=== PATIENT | female | born 1950 | race African-American/Black ===

== ENCOUNTER 2018-06-30 12:25 | Inpatient (IN) | payer MEDICARE, OTHER ==
[2018-06-30 13:11] VITALS: BP 160/64
--- NOTE | 2018-06-30 13:29 | ED Physician Chart ---
ED Chief Complaint/HPI - Patient Information Date Seen:: 06/30/18 Time Seen:: 12:59 Chief Complaint:: psychosis History of Present Illness:: this is a 67 yo female who was sent from the long-term for evaluation and treatment. she has dementia, copd chf,left breast tumor, diabetes mellitus gerd and bilatr thrombosis with bipolar disease. Allergies:: Allergies Allergy/AdvReac Type Severity Reaction Status Date / Time amoxicillin Allergy Verified 06/30/18 12:50 codeine Allergy Verified 06/30/18 12:50 Influenza Virus Vaccines Allergy Verified 06/30/18 12:50 Penicillins [PCN] Allergy Verified 06/30/18 12:50 tramadol Allergy Verified 06/30/18 12:50 Vitals:: Vital Signs - 8 hr 06/30/18 06/30/18 12:50 13:04 Temp 97.7 F HR 68 RR 18 BP 160/64 160/64 O2 Sat % 99 Historian:: Patient, Medical Records Review:: Nurse's Note Reviewed, Old Chart Reviewed ED Review of Systems - Review of Systems General/Constitutional: No fever, No chills, No weight loss, Weakness, No diaphoresis, No edema, No loss of appetite Skin: No skin lesions, Rash, No bruising Head: Headache, No light-headedness Eyes: No loss of vision, No pain, No diplopia ENT: No earache, No nasal drainage, No sore throat, No tinnitus Neck: No neck pain, No swelling, No thyromegaly, No stiffness, No mass noted Cardio Vascular: No chest pain, No palpitations, PND, No orthopnea, edema Pulmonary: SOB, Cough, No sputum, No wheezing GI: No nausea, No vomiting, No diarrhea, No pain, No melena, No hematochezia, No constipation, No hematemesis G/U: No dysuria, No frequency, No hematuria Musculoskeletal: Bone or joint pain, No back pain, No muscle pain Endocrine: No polyuria, No polydipsia Psychiatric: Prior psych history, No depression, No anxiety, No suicidal ideation Hematopoietic: No bruising, No lymphadenopathy Allergic/Immuno: No urticaria, No angioedema Neurological: No syncope, No focal symptoms, No weakness, No paresthesia, No headache, No seizure, No dizziness, No confusion, No vertigo ED Past Medical History - Past Medical History Obtainable: Yes Past Medical History: HTN, DM, CAD, CHF, Asthma/COPD, DVT/PE, Dyslipidemia, PUD/ GERD, Arthritis, Dementia Family History: None Social History: Smoker, Alcohol, Illicit Drug Use, Care Facility Surgical History: Appendectomy, other (exploratory lap) Family Medical History - Family Member Mother History Unknown: Yes Ethnicity: Non- Living Status: Hx Family Diabetes: Yes ED Labs/Radiology/EKG Results - Lab Results Results: Laboratory Results - last 24 hr 06/30/18 06/30/18 06/30/18 12:20 12:20 12:20 WBC 6.0 RBC 4.20 Hgb 11.8 L Hct 36.2 L MCV 86.1 MCH 28.0 MCHC Differential 32.5 RDW 17.4 Plt Count 297 MPV 8.0 Neutrophils % 58.2 Lymphocytes % 29.5 Monocytes % 9.0 Eosinophils % 2.2 Basophils % 1.1 PT 11.0 INR 1.06 PTT (Actin FS) 29.4 Sodium Potassium Chloride Carbon Dioxide Anion Gap BUN Creatinine Est GFR ( Amer) Est GFR (Non-Af Amer) BUN/Creatinine Ratio Glucose Calcium Total Bilirubin AST ALT Alkaline Phosphatase Troponin I 0.01 B-Natriuretic Peptide Total Protein Albumin Globulin Albumin/Globulin Ratio Triglycerides Cholesterol LDL Cholesterol Direct HDL Cholesterol 06/30/18 06/30/18 06/30/18 12:20 13:02 13:17 WBC RBC Hgb Hct MCV MCH MCHC Differential RDW Plt Count MPV Neutrophils % Lymphocytes % Monocytes % Eosinophils % Basophils % PT INR PTT (Actin FS) Sodium 131 L Potassium 5.0 Chloride 97 L Carbon Dioxide 23.5 Anion Gap 15.5 BUN 38 H Creatinine 1.8 H Est GFR ( Amer) 36.3 Est GFR (Non-Af Amer) 30.0 BUN/Creatinine Ratio 21.1 Glucose 348 H Calcium 9.7 Total Bilirubin 0.5 AST 8 L ALT 11 Alkaline Phosphatase 71 Troponin I B-Natriuretic Peptide 34.5 Total Protein 7.0 Albumin 3.5 L Globulin 3.5 Albumin/Globulin Ratio 1.0 Triglycerides 143 Cholesterol 236 H LDL Cholesterol Direct 145 HDL Cholesterol 55 - Radiology Results Results: chest x-ray = nad - EKG Interpretations EKG Time:: 13:32 Rate & Rhythm: rate= 68, sinus [place]: right axis ED Assessment - Assessment General Assessment: psychosis ED Septic Shock - . Is Septic Shock (SBP<90, OR Lactate>4 mmol\L) present?: No - <6hrs of presentation: Vital Signs: Vital Signs - 8 hr 06/30/18 06/30/18 12:50 13:04 Temp 97.7 F HR 68 RR 18 BP 160/64 160/64 O2 Sat % 99 ED Reassessment (Disposition) - Reassessment Reassessment Condition:: Improved - Diagnosis Diagnosis:: psychosis - Patient Disposition Discharge/Transfer:: Acute Care w/in this hosp Admitting Medical Physician:: Jovon Ayon Admitting Psych Physician:: Alexandra Srinivasan Condition at Disposition:: Unchanged
[2018-06-30 13:44] LABS: % BASOPHILS 1.1 % (0.0-2.0); % EOSINOPHILS 2.2 % (0.0-5.0); % LYMPHOCYTES 29.5 % (20.0-50.0); % NEUTROPHILS 58.2 % (40.0-80.0); BASOPHILE ABSOLUTE 0.1 Th/cumm (0-0.2); EOSINOPHILE ABSOLUTE 0.1 Th/cmm (0.1-0.4); HEMATOCRIT 36.2 % (41.0-60); HEMOGLOBIN 11.8 gm/dL (12-16); LYMPHOCYTE ABSOLUTE 1.8 Th/cmm (1.5-3.0); MEAN CELL VOLUME 86.1 fl (81-100); MEAN CORPUSCULAR HGB CONC 32.5 pg (28.0-36.0); MONOCYTE ABSOLUTE 0.5 Th/cmm (0.3-1.0); NEUTROPHILE ABSOLUTE 3.5 Th/cmm (1.8-8.0); PLATELET COUNT 297 Th/cmm (150-400); RED CELL DISTRIBUTION WIDTH 17.4 % (11.5-20.0)
[2018-06-30 13:51] LABS: ALBUMIN 3.5 gm/dL (3.7-5.3); ANION GAP 15.5 (7.0-16.0); BILIRUBIN,TOTAL 0.5 mg/dL (0.3-1.0); CALCIUM SERUM 9.7 mg/dL (8.6-10.3); CARBON DIOXIDE 23.5 mEq/L (21.0-31.0); CREATININE - SERUM 1.8 mg/dL (0.6-1.2); GFR AFRICAN-AMERICAN 36.3 ml/min (>90)
[2018-06-30 13:54] LABS: CHOLESTEROL 236 mg/dL (<200); HDL -HIGH DENSITY LIPOPROTEIN 55 mg/dL (23-92); TRIGLYCERIDES 143 mg/dL (<150)
[2018-06-30 14:00] LABS: INR 1.06 (0.5-1.4)
[2018-06-30] MEDS ORDERED: Maalox 30 mL Cup PO PRN (16:09)
[2018-06-30] MEDS ORDERED: Magnesium Hydroxide (MOM) 30 mL UDC PO PRN (16:09)
[2018-06-30 16:28] LABS: CHOLESTEROL 224 mg/dL (<200); HDL -HIGH DENSITY LIPOPROTEIN 56 mg/dL (23-92); TRIGLYCERIDES 138 mg/dL (<150)
[2018-06-30] MEDS ORDERED: INSULIN LISPRO SLIDING SCALE 100 UNITS/ML UNIT SUBQ SCH (16:30)
[2018-06-30] MEDS ORDERED: Non-Formulary Item 1 EA (Atorvastatin Calcium [Lipitor] 40 MG) PO SCH (21:00)
[2018-06-30] MEDS: Insulin Glargine 100 units/ml 10ml Vial SUBQ SCH (21:17)
[2018-06-30] MEDS: INSULIN LISPRO SLIDING SCALE 100 UNITS/ML UNIT SUBQ SCH (21:24)
[2018-07-01] MEDS: INSULIN LISPRO SLIDING SCALE 100 UNITS/ML UNIT SUBQ SCH ×4 (06:35→21:01)
[2018-07-01] MEDS: Pantoprazole 40 mg EC Tab PO SCH (06:42)
[2018-07-01] MEDS ORDERED: BENAZEPRIL HCL 40 MG PO SCH (09:00)
[2018-07-01] MEDS: Apixaban 5 MG TABLET PO SCH ×2 (10:14→17:24)
[2018-07-01] MEDS: Multivitamin Tab PO SCH (10:15)
--- NOTE | 2018-07-01 10:49 | Diagnostic Imaging Report ---
CHEST X-RAY: AP view INDICATION: Cough COMPARISON: 10/31/2014 FINDINGS: Chronic interstitial lung changes are noted. There is no focal consolidation or pleural effusions The heart is normal mildly prominent. Degenerative changes of the spine are noted. Postsurgical changes of the left axillary region are noted. IMPRESSION: Chronic lung changes. No focal consolidation identified Mild cardiomegaly Postsurgical changes of the left axillary region.
--- NOTE | 2018-07-01 11:54 | History & Physical ---
ADMIT DATE: The patient was admitted for acute psychosis from Emergency Room for medical followup. HISTORY OF PRESENT ILLNESS: This is a 67-year-old female patient, came from the alf because of severe agitation and confusion. The patient is known to have history of multiple medical problems including history of COPD, history of CHF, history of diabetes mellitus, GERD, thrombosis and dementia. The patient also has bipolar disorder. The patient is a poor historian, difficult to obtain history. REVIEW OF SYSTEMS: Essentially negative except for severe agitation. PHYSICAL EXAMINATION: HEENT: Normocephalic. Pupils equal, reactive. NECK: Supple, nontender. LUNGS: Clear. CARDIOVASCULAR: S1, S2 heard. ABDOMEN: Soft. Bowel sounds are heard. CENTRAL NERVOUS SYSTEM: The patient is confused. DIAGNOSES: Acute psychosis, history of hypertension, diabetes, history of coronary artery disease, congestive heart failure, history of asthma, chronic obstructive pulmonary disease, history of deep vein thrombosis in the past, history of dyslipidemia, history of peptic ulcer disease, gastroesophageal reflux disease, history of arthritis, and history of dementia. PLAN: We will go through her medication, reconcile her medication, and I will follow medically along with psychiatrist. JOB# [id number]
--- NOTE | 2018-07-01 15:17 | Psychiatric Evaluation ---
DATE OF SERVICE: 06/30/2018 IDENTIFYING INFORMATION: The patient is a 67-year-old female. HISTORY OF PRESENT ILLNESS: The patient comes from nursing facility because of agitation and confusion. The patient herself reports that she was admitted because she has been depressed all her life. She denies any intent to harm herself or anybody. Unable to tell me where she lived. She has been getting easily agitated with a history of dementia. The patient was able to tell me the date. She believes she is in the [facility] and that she was falsely accused. She admits using marijuana and alcohol, but she reports that was sporadic. She denies any intent to harm herself or anybody. She denies any auditory or visual hallucinations. She cannot remember the name of her medication. PAST PSYCHIATRIC HISTORY: The patient reports she was treated before. She has been hospitalized her before. She has been depressed all her life. She reports she believes that people are trying to harm her, paranoid and delusional. MEDICAL HISTORY: Peptic ulcer disease, GERD, history of arthritis, dementia, hypertension, diabetes mellitus, coronary artery disease, congestive heart failure, asthma, COPD, deep vein thrombosis and history of hyperlipidemia. ALLERGIES: THE PATIENT IS ALLERGIC TO AMOXICILLIN, CODEINE, VIRUS VACCINE, LACTULOSE. The patient was started on Risperdal 1 mg at bedtime, medication by Dr. Ayon. FAMILY AND SOCIAL HISTORY: The patient reported that she has been , not sure how long. She says she has three children, one boy and two girls. She reports she has college education. She worked in sales, using THC and alcohol sporadically. She denies family psychotic disorder. She is a poor historian. The patient came from a nursing facility. MENTAL STATUS EXAMINATION: The patient is appropriately dressed, not very groomed. She was smoking. She was alert. She was able to tell me the date. She believes she is [facility] because she was falsely accused of having depression, but then she admitted that she has been depressed all her life; however, she denies that she would harm herself or anyone. She has been easily agitated, irritable. She denies visual hallucination. Cannot remember name for medication. She has been paranoid, believing people are trying to kill her. She denies any intent to harm anyone. She seems to have average intelligence. She knows the senior account director. Concentration is poor. Unable to repeat things after me, internally preoccupied. She is paranoid. She denies any visual hallucination. She denies any intent to harm herself or anyone. Long-term good for age. Recent memory is recurrent movements with her coming here. Her insight about her illness is fair. She has depression and judgment is poor with her erratic behavior, agitated behavior, paranoia. IMPRESSION: Schizoaffective disorder. MEDICAL: Psychosis, THC and alcohol abuse. MEDICAL DIAGNOSES: As per Dr. Ayon. PLAN: The patient was started back on Risperdal 1 mg at bedtime. We will do group therapy, milieu therapy, and individual therapy. ESTIMATED LENGTH OF STAY: 3-7 days. DISCHARGE CRITERIA: Decreasing agitation, paranoia, psychosis, after discharge outpatient treatment. JOB# [id number]
[2018-07-01] MEDS ORDERED: Dextrose 50% 50 mL Abboject IVP PRN (17:07)
[2018-07-01] MEDS ORDERED: GLUCAGON HCl 1 MG KIT IM PRN (17:07)
[2018-07-01] MEDS ORDERED: INSULIN LISPRO SLIDING SCALE 100 UNITS/ML UNIT SUBQ SCH (18:00)
[2018-07-01] MEDS: Insulin Glargine 100 units/ml 10ml Vial SUBQ SCH (21:00)
[2018-07-02] MEDS: Pantoprazole 40 mg EC Tab PO SCH (06:32)
[2018-07-02] MEDS: INSULIN LISPRO SLIDING SCALE 100 UNITS/ML UNIT SUBQ SCH ×4 (06:32→20:59)
[2018-07-02] MEDS: Multivitamin Tab PO SCH (08:49)
[2018-07-02] MEDS: Apixaban 5 MG TABLET PO SCH ×2 (08:52→16:26)
--- NOTE | 2018-07-02 16:32 | Internal Medicine Prog Note ---
Internal Medicine Subjective - Subjective Service Date: 07/02/18 Patient seen and examined:: with staff Patient is:: awake, verbal Patient Complaints of:: other (Hx of Dementia.) Per staff patient has:: no adverse event, no episodes of fall Internal Medicine Objective - Results Result Diagrams: 06/30/18 12:20 06/30/18 12:20 Recent Labs: Laboratory Last Values WBC 6.0 Th/cmm (4.8-10.8) 06/30/18 12:20 RBC 4.20 Mil/cmm (3.80-5.20) 06/30/18 12:20 Hgb 11.8 gm/dL (12-16) L 06/30/18 12:20 Hct 36.2 % (41.0-60) L 06/30/18 12:20 MCV 86.1 fl (81-100) 06/30/18 12:20 MCH 28.0 pg (27.0-31.0) 06/30/18 12:20 MCHC Differential 32.5 pg (28.0-36.0) 06/30/18 12:20 RDW 17.4 % (11.5-20.0) 06/30/18 12:20 Plt Count 297 Th/cmm (150-400) 06/30/18 12:20 MPV 8.0 fl 06/30/18 12:20 Neutrophils % 58.2 % (40.0-80.0) 06/30/18 12:20 Lymphocytes % 29.5 % (20.0-50.0) 06/30/18 12:20 Monocytes % 9.0 % (2.0-10.0) 06/30/18 12:20 Eosinophils % 2.2 % (0.0-5.0) 06/30/18 12:20 Basophils % 1.1 % (0.0-2.0) 06/30/18 12:20 PT 11.0 SECONDS (9.5-11.5) 06/30/18 12:20 INR 1.06 (0.5-1.4) 06/30/18 12:20 PTT (Actin FS) 29.4 SECONDS (26.0-38.0) 06/30/18 12:20 Sodium 131 mEq/L (136-145) L 06/30/18 12:20 Potassium 5.0 mEq/L (3.5-5.1) 06/30/18 12:20 Chloride 97 mEq/L (98-107) L 06/30/18 12:20 Carbon Dioxide 23.5 mEq/L (21.0-31.0) 06/30/18 12:20 Anion Gap 15.5 (7.0-16.0) 06/30/18 12:20 BUN 38 mg/dL (7-25) H 06/30/18 12:20 Creatinine 1.8 mg/dL (0.6-1.2) H 06/30/18 12:20 Est GFR ( Amer) 36.3 ml/min (>90) 06/30/18 12:20 Est GFR (Non-Af Amer) 30.0 ml/min 06/30/18 12:20 BUN/Creatinine Ratio 21.1 06/30/18 12:20 Glucose 348 mg/dL (70-105) H 06/30/18 12:20 POC Glucose 237 MG/DL (70 - 105) H 07/02/18 11:32 Calcium 9.7 mg/dL (8.6-10.3) 06/30/18 12:20 Total Bilirubin 0.5 mg/dL (0.3-1.0) 06/30/18 12:20 AST 8 U/L (13-39) L 06/30/18 12:20 ALT 11 U/L (7-52) 06/30/18 12:20 Alkaline Phosphatase 71 U/L (34-104) 06/30/18 12:20 Troponin I 0.01 ng/mL (0.01-0.05) 06/30/18 12:20 B-Natriuretic Peptide 34.5 pg/mL (5.0-100.0) 06/30/18 13:17 Total Protein 7.0 gm/dL (6.0-8.3) 06/30/18 12:20 Albumin 3.5 gm/dL (3.7-5.3) L 06/30/18 12:20 Globulin 3.5 gm/dL 06/30/18 12:20 Albumin/Globulin Ratio 1.0 (1.0-1.8) 06/30/18 12:20 Triglycerides 138 mg/dL (<150) 06/30/18 13:02 Cholesterol 224 mg/dL (<200) H 06/30/18 13:02 LDL Cholesterol Direct 143 mg/dL (75-193) 06/30/18 13:02 HDL Cholesterol 56 mg/dL (23-92) 06/30/18 13:02 - Physical Exam Vitals and I&O: Vital Signs Temp 97.6 F 07/02/18 16:17 Pulse 73 07/02/18 16:25 Resp 20 07/02/18 16:17 BP 129/51 07/02/18 16:25 Pulse Ox 99 07/02/18 16:17 Intake & Output 07/01/18 07/02/18 07/02/18 18:59 06:59 18:59 Intake Total 120 Balance 120 Intake: Oral 120 Other: # Voids 4 3 # Bowel Movements 0 Active Medications: Current Medications Acetaminophen (Tylenol) 650 mg PO Q4HR PRN PRN Reason: Mild Pain / Temp above 100 Stop: 08/29/18 16:08 Al Hydrox/Mg Hydrox/Simethicone (Maalox) 30 ml PO Q4HR PRN PRN Reason: GI DISTRESS Stop: 08/29/18 16:08 Amlodipine Besylate (Norvasc) 10 mg PO DAILY [facility] Stop: 08/30/18 08:59 Last Admin: 07/02/18 08:50 Dose: 10 mg Atorvastatin Calcium (Lipitor) 40 mg PO HS [facility] Stop: 08/29/18 20:59 Last Admin: 07/01/18 20:53 Dose: 40 mg Benazepril HCl (Lotensin) 40 mg PO DAILY [facility] Stop: 08/30/18 08:59 Last Admin: 07/02/18 08:49 Dose: 40 mg Carvedilol (Coreg) 18.75 mg PO BID [facility] Stop: 08/29/18 16:59 Last Admin: 07/02/18 16:25 Dose: 18.75 mg Dextrose (D50w) 50 ml IVP PRN PRN PRN Reason: Blood Glucose less than 70 Stop: 08/30/18 17:06 Dextrose (Glutose 40%) 18.75 gm PO PRN PRN PRN Reason: Blood Glucose less than 70 Stop: 08/30/18 17:06 Glucagon (Glucagen) 1 mg IM PRN PRN PRN Reason: Blood Glucose less than 70 Stop: 08/30/18 17:06 Insulin Glargine (Lantus Insulin) 20 units SUBQ HS [facility] Stop: 08/29/18 20:59 Last Admin: 07/01/18 21:00 Dose: 20 units Insulin Human Lispro (Humalog Insulin Sliding Scale) 0 units SUBQ ACHS [facility]; Protocol Stop: 08/30/18 17:14 Last Admin: 07/02/18 12:00 Dose: 6 units Magnesium Hydroxide (Milk Of Magnesia) 30 ml PO HS PRN PRN Reason: Constipation Montelukast Sodium (Singulair) 10 mg PO DAILY [facility] Stop: 08/30/18 08:59 Last Admin: 07/02/18 08:49 Dose: 10 mg Multivitamins/Vitamin C (Theragran) 1 tab PO DAILY [facility] Stop: 08/30/18 08:59 Last Admin: 07/02/18 08:49 Dose: 1 tab Pantoprazole Sodium (Protonix) 40 mg PO QDAC [facility] Stop: 08/30/18 07:29 Last Admin: 07/02/18 06:32 Dose: 40 mg Risperidone (Risperdal) 1 mg PO BID [facility]; Protocol Stop: 08/31/18 08:59 Last Admin: 07/02/18 16:26 Dose: 1 mg Zolpidem Tartrate (Ambien) 5 mg PO HSMR1 PRN PRN Reason: Insomnia Stop: 08/29/18 16:08 - Procedures Procedures: Procedures Procedure Code Date INDIVID PSYCHOTHERAP NEC 94.39 05/26/08 OTHER GROUP THERAPY 94.44 10/31/14 RECREATIONAL THERAPY 93.81 05/26/08 Nutritional Asmnt/Malnutr-PDOC - Dietary Evaluation Malnutrition Findings (Please click <Entered> for more info): Nutritional Asmnt/Malnutrition Start: 07/02/18 10: 36 Text: Status: Complete Freq: Protocol: Document 07/02/18 10:36 JOSR (Rec: 07/02/18 10:50 [email or web address] [email or web address]) Nutritional Asmnt/Malnutrition Patient General Information Nutritional Screening High Risk Diagnosis psychosis Pertinent Medical Hx/Surgical Hx HTN, DM, CAD, CHF, asthma/COPD , DVT/PE, dyslipidemia, PUD/ GERD, arthritis, dementia, appendectomy Subjective Information Pt seen eating lunch in dining room. Per EMR, PO intake 50- 100%. Glucose 348 at admission noted. Not able to provide diabetic education d/t pt mental status. Current Diet Order/ Nutrition Support [facility] sofr, CCHO 60gm, Na 2gm, no lactoase Pertinent Medications lipitor, lantus, humalog, theragran, protonix Pertinent Labs 06/30 Na 131, Cl 97, BUN 38, Cr 1.8, Glucose 345 07/01-6 POC 89-324 Nutritional Hx/Data Height 1.73 m Height (Calculated Centimeters) 172.7 Current Weight (lbs) 68.039 kg Weight (Calculated Kilograms) 68.0 Weight (Calculated Grams) 13219.9 [place] Body Weight 140 Body Mass Index (BMI) 22.8 Weight Status Approriate GI Symptoms GI Symptoms None Last BM 5 Difficult in: None Food Allergies lactose Skin Integrity/Comment: intact Current %PO Good (75-100%) Estimated Nutritional Goals BEE in Kcals: Using Current wt Calories/Kcals/Kg 25-30 Kcals Calculated [id number] Protein: Using Current wt Protein g/k-1.2 Protein Calculated 68-82 Fluid: ml 1700-2040ml (1ml/kcal) Nutritional Problem 1. Problem Problem altered nutrition related labs Etiology hyperglycemia, renal dysfunction Signs/Symptoms: BUN 38, Cr 1.8, Glucose 345, POC 89-324 Malnutrition Alert Is there a minimum of two criteria No selected? Query Text:Check all the applicable criteria. A minimum of two criteria are recommended for diagnosis of either severe or non-severe malnutrition. Malnutrition Related to Morbid Obesity Malnutrition related to morbid obesity No Intervention/Recommendation Comments 1. Continue with [facility] soft, CCHO 60gm, Na 2gm, no lactoase diet as ordered. MD to adjust insulin regimen for optimal glycemic control. 2. Monitor PO intake, wt, labs and skin integrity 3. F/U as high risk in 2-3 days Expected Outcomes/Goals Expected Outcomes/Goals 1. PO intake to meet at least 75% of nutritional needs. 2. Wt stability, skin to remain intact, labs to approach WNL.
[2018-07-02] MEDS: Insulin Glargine 100 units/ml 10ml Vial SUBQ SCH (20:58)
--- NOTE | 2018-07-03 02:21 | Progress Notes ---
DATE: 07/02/2018 SUBJECTIVE: Chart reviewed and the patient interviewed. Also discussed the patient's condition with the staff and reviewed records and labs. The patient is still anxious and is still confused. The patient also is still guarded, isolative and withdrawn. The patient is slightly paranoid and suspicious. On the other hand, the patient continued to comply with taking her medications and no side effects of Risperdal. ASSESSMENT: The patient is still psychotic and agitated. TREATMENT PLAN: Continue to monitor her behavior and her condition closely. Also we will increase Risperdal to 1 mg twice a day and continue to follow up closely. Also working on behavioral modification. JOB# [id number]
[2018-07-03] MEDS: INSULIN LISPRO SLIDING SCALE 100 UNITS/ML UNIT SUBQ SCH ×4 (06:32→21:39)
[2018-07-03] MEDS: Pantoprazole 40 mg EC Tab PO SCH (06:32)
[2018-07-03] MEDS: Apixaban 5 MG TABLET PO SCH ×2 (08:38→16:14)
[2018-07-03] MEDS: Multivitamin Tab PO SCH (08:39)
--- NOTE | 2018-07-03 14:44 | Internal Medicine Prog Note ---
Internal Medicine Subjective - Subjective Service Date: 07/03/18 Patient seen and examined:: with staff Patient is:: awake, verbal Patient Complaints of:: other (Hx of Dementia.) Per staff patient has:: no adverse event, no episodes of fall Internal Medicine Objective - Results Result Diagrams: 06/30/18 12:20 06/30/18 12:20 Recent Labs: Laboratory Last Values WBC 6.0 Th/cmm (4.8-10.8) 06/30/18 12:20 RBC 4.20 Mil/cmm (3.80-5.20) 06/30/18 12:20 Hgb 11.8 gm/dL (12-16) L 06/30/18 12:20 Hct 36.2 % (41.0-60) L 06/30/18 12:20 MCV 86.1 fl (81-100) 06/30/18 12:20 MCH 28.0 pg (27.0-31.0) 06/30/18 12:20 MCHC Differential 32.5 pg (28.0-36.0) 06/30/18 12:20 RDW 17.4 % (11.5-20.0) 06/30/18 12:20 Plt Count 297 Th/cmm (150-400) 06/30/18 12:20 MPV 8.0 fl 06/30/18 12:20 Neutrophils % 58.2 % (40.0-80.0) 06/30/18 12:20 Lymphocytes % 29.5 % (20.0-50.0) 06/30/18 12:20 Monocytes % 9.0 % (2.0-10.0) 06/30/18 12:20 Eosinophils % 2.2 % (0.0-5.0) 06/30/18 12:20 Basophils % 1.1 % (0.0-2.0) 06/30/18 12:20 PT 11.0 SECONDS (9.5-11.5) 06/30/18 12:20 INR 1.06 (0.5-1.4) 06/30/18 12:20 PTT (Actin FS) 29.4 SECONDS (26.0-38.0) 06/30/18 12:20 Sodium 131 mEq/L (136-145) L 06/30/18 12:20 Potassium 5.0 mEq/L (3.5-5.1) 06/30/18 12:20 Chloride 97 mEq/L (98-107) L 06/30/18 12:20 Carbon Dioxide 23.5 mEq/L (21.0-31.0) 06/30/18 12:20 Anion Gap 15.5 (7.0-16.0) 06/30/18 12:20 BUN 38 mg/dL (7-25) H 06/30/18 12:20 Creatinine 1.8 mg/dL (0.6-1.2) H 06/30/18 12:20 Est GFR ( Amer) 36.3 ml/min (>90) 06/30/18 12:20 Est GFR (Non-Af Amer) 30.0 ml/min 06/30/18 12:20 BUN/Creatinine Ratio 21.1 06/30/18 12:20 Glucose 348 mg/dL (70-105) H 06/30/18 12:20 POC Glucose 191 MG/DL (70 - 105) H 07/03/18 11:07 Calcium 9.7 mg/dL (8.6-10.3) 06/30/18 12:20 Total Bilirubin 0.5 mg/dL (0.3-1.0) 06/30/18 12:20 AST 8 U/L (13-39) L 06/30/18 12:20 ALT 11 U/L (7-52) 06/30/18 12:20 Alkaline Phosphatase 71 U/L (34-104) 06/30/18 12:20 Troponin I 0.01 ng/mL (0.01-0.05) 06/30/18 12:20 B-Natriuretic Peptide 34.5 pg/mL (5.0-100.0) 06/30/18 13:17 Total Protein 7.0 gm/dL (6.0-8.3) 06/30/18 12:20 Albumin 3.5 gm/dL (3.7-5.3) L 06/30/18 12:20 Globulin 3.5 gm/dL 06/30/18 12:20 Albumin/Globulin Ratio 1.0 (1.0-1.8) 06/30/18 12:20 Triglycerides 138 mg/dL (<150) 06/30/18 13:02 Cholesterol 224 mg/dL (<200) H 06/30/18 13:02 LDL Cholesterol Direct 143 mg/dL (75-193) 06/30/18 13:02 HDL Cholesterol 56 mg/dL (23-92) 06/30/18 13:02 - Physical Exam Vitals and I&O: Vital Signs Temp 98.6 F 07/03/18 06:26 Pulse 79 07/03/18 08:39 Resp 18 07/03/18 08:00 BP 151/75 07/03/18 08:39 Pulse Ox 94 07/03/18 06:26 Intake & Output 07/02/18 07/03/18 07/03/18 18:59 06:59 18:59 Intake Total 240 Output Total 1 Balance 239 Intake: Oral 240 Output: Urine/Stool Mix 1 Other: # Voids 3 # Bowel Movements 0 Active Medications: Current Medications Acetaminophen (Tylenol) 650 mg PO Q4HR PRN PRN Reason: Mild Pain / Temp above 100 Stop: 08/29/18 16:08 Al Hydrox/Mg Hydrox/Simethicone (Maalox) 30 ml PO Q4HR PRN PRN Reason: GI DISTRESS Stop: 08/29/18 16:08 Amlodipine Besylate (Norvasc) 10 mg PO DAILY [facility] Stop: 08/30/18 08:59 Last Admin: 07/03/18 08:38 Dose: 10 mg Atorvastatin Calcium (Lipitor) 40 mg PO HS [facility] Stop: 08/29/18 20:59 Last Admin: 07/02/18 20:57 Dose: 40 mg Benazepril HCl (Lotensin) 40 mg PO DAILY [facility] Stop: 08/30/18 08:59 Last Admin: 07/03/18 08:39 Dose: 40 mg Carvedilol (Coreg) 18.75 mg PO BID [facility] Stop: 08/29/18 16:59 Last Admin: 07/03/18 08:38 Dose: 18.75 mg Dextrose (D50w) 50 ml IVP PRN PRN PRN Reason: Blood Glucose less than 70 Stop: 08/30/18 17:06 Dextrose (Glutose 40%) 18.75 gm PO PRN PRN PRN Reason: Blood Glucose less than 70 Stop: 08/30/18 17:06 Glucagon (Glucagen) 1 mg IM PRN PRN PRN Reason: Blood Glucose less than 70 Stop: 08/30/18 17:06 Insulin Glargine (Lantus Insulin) 20 units SUBQ HS [facility] Stop: 08/29/18 20:59 Last Admin: 07/02/18 20:58 Dose: 20 units Insulin Human Lispro (Humalog Insulin Sliding Scale) 0 units SUBQ ACHS [facility]; Protocol Stop: 08/30/18 17:14 Last Admin: 07/03/18 11:31 Dose: 4 units Magnesium Hydroxide (Milk Of Magnesia) 30 ml PO HS PRN PRN Reason: Constipation Montelukast Sodium (Singulair) 10 mg PO DAILY [facility] Stop: 08/30/18 08:59 Last Admin: 07/03/18 08:39 Dose: 10 mg Multivitamins/Vitamin C (Theragran) 1 tab PO DAILY [facility] Stop: 08/30/18 08:59 Last Admin: 07/03/18 08:39 Dose: 1 tab Pantoprazole Sodium (Protonix) 40 mg PO QDAC [facility] Stop: 08/30/18 07:29 Last Admin: 07/03/18 06:32 Dose: 40 mg Risperidone (Risperdal) 1 mg PO BID [facility]; Protocol Stop: 08/31/18 08:59 Last Admin: 07/03/18 08:38 Dose: 1 mg Zolpidem Tartrate (Ambien) 5 mg PO HSMR1 PRN PRN Reason: Insomnia Stop: 08/29/18 16:08 General: alert HEENT: NC/AT, PERRLA Neck: Supple Lungs: CTAB Cardiovascular: RRR, Normal S1, Normal S2, without murmur Abdomen: soft, non-tender, non-distended, positive bowel sound Extremities: excoriation Neurological: alert - Procedures Procedures: Procedures Procedure Code Date INDIVID PSYCHOTHERAP NEC 94.39 05/26/08 OTHER GROUP THERAPY 94.44 10/31/14 RECREATIONAL THERAPY 93.81 05/26/08 Internal Medicine Assmt/Plan - Assessment Assessment: HTN DM CAD CHF COPD Dyslipidemia Arthritis Dementia - Plan Plan: FALL PRECAUTIONS ACCUCHECK CONTINUE CURRENT PLAN OF CARE Nutritional Asmnt/Malnutr-PDOC - Dietary Evaluation Malnutrition Findings (Please click <Entered> for more info): Nutritional Asmnt/Malnutrition Start: 07/02/18 10: 36 Text: Status: Complete Freq: Protocol: Document 07/02/18 10:36 [facility] (Rec: 07/02/18 10:50 [facility] [email or web address]) Nutritional Asmnt/Malnutrition Patient General Information Nutritional Screening High Risk Diagnosis psychosis Pertinent Medical Hx/Surgical Hx HTN, DM, CAD, CHF, asthma/COPD , DVT/PE, dyslipidemia, PUD/ GERD, arthritis, dementia, appendectomy Subjective Information Pt seen eating lunch in dining room. Per EMR, PO intake 50- 100%. Glucose 348 at admission noted. Not able to provide diabetic education d/t pt mental status. Current Diet Order/ Nutrition Support [facility] sofr, CCHO 60gm, Na 2gm, no lactoase Pertinent Medications lipitor, lantus, humalog, theragran, protonix Pertinent Labs 06/30 Na 131, Cl 97, BUN 38, Cr 1.8, Glucose 345 07/01-07/02 POC 89-324 Nutritional Hx/Data Height 5 ft 8 in Height (Calculated Centimeters) 172.7 Current Weight (lbs) 150 lb Weight (Calculated Kilograms) 68.0 Weight (Calculated Grams) 29561.9 [place] Body Weight 140 Body Mass Index (BMI) 22.8 Weight Status Approriate GI Symptoms GI Symptoms None Last BM 07/01 Difficult in: None Food Allergies lactose Skin Integrity/Comment: intact Current %PO Good (75-100%) Estimated Nutritional Goals BEE in Kcals: Using Current wt Calories/Kcals/Kg 25-30 Kcals Calculated 4397-1921 Protein: Using Current wt Protein g/k-1.2 Protein Calculated 68-82 Fluid: ml 1700-2040ml (1ml/kcal) Nutritional Problem 1. Problem Problem altered nutrition related labs Etiology hyperglycemia, renal dysfunction Signs/Symptoms: BUN 38, Cr 1.8, Glucose 345, POC 89-324 Malnutrition Alert Is there a minimum of two criteria No selected? Query Text:Check all the applicable criteria. A minimum of two criteria are recommended for diagnosis of either severe or non-severe malnutrition. Malnutrition Related to Morbid Obesity Malnutrition related to morbid obesity No Intervention/Recommendation Comments 1. Continue with [facility] soft, CCHO 60gm, Na 2gm, no lactoase diet as ordered. MD to adjust insulin regimen for optimal glycemic control. 2. Monitor PO intake, wt, labs and skin integrity 3. F/U as high risk in 2-3 days Expected Outcomes/Goals Expected Outcomes/Goals 1. PO intake to meet at least 75% of nutritional needs. 2. Wt stability, skin to remain intact, labs to approach WNL.
[2018-07-03] MEDS: Insulin Glargine 100 units/ml 10ml Vial SUBQ SCH (21:39)
--- NOTE | 2018-07-04 03:27 | Progress Notes ---
DATE: SUBJECTIVE: Chart was reviewed and the patient interviewed. Also discussed the patient's condition with the staff and reviewed records and labs. The patient is still withdrawn and she is still guarded. The patient also is still suspicious and is still paranoid. The patient also still needs lots of redirections. Otherwise, the patient is compliant with taking her medications with no side effects of medications. ASSESSMENT: The patient is still psychotic and is still withdrawn. TREATMENT PLAN: Continue to monitor her behavior and her condition closely. Also, continue Risperdal 1 mg twice a day and continue to work on behavioral modification. JOB# [id number]
[2018-07-04] MEDS: INSULIN LISPRO SLIDING SCALE 100 UNITS/ML UNIT SUBQ SCH ×4 (06:42→20:57)
[2018-07-04] MEDS: Pantoprazole 40 mg EC Tab PO SCH (06:50)
[2018-07-04] MEDS: Apixaban 5 MG TABLET PO SCH ×2 (08:34→17:20)
[2018-07-04] MEDS: Multivitamin Tab PO SCH (08:37)
--- NOTE | 2018-07-04 19:34 | Internal Medicine Prog Note ---
Internal Medicine Subjective - Subjective Service Date: 07/04/18 Patient seen and examined:: with staff Patient is:: awake, verbal Patient Complaints of:: other (Hx of Dementia.) Per staff patient has:: no adverse event, no episodes of fall Internal Medicine Objective - Results Result Diagrams: 06/30/18 12:20 06/30/18 12:20 Recent Labs: Laboratory Last Values WBC 6.0 Th/cmm (4.8-10.8) 06/30/18 12:20 RBC 4.20 Mil/cmm (3.80-5.20) 06/30/18 12:20 Hgb 11.8 gm/dL (12-16) L 06/30/18 12:20 Hct 36.2 % (41.0-60) L 06/30/18 12:20 MCV 86.1 fl (81-100) 06/30/18 12:20 MCH 28.0 pg (27.0-31.0) 06/30/18 12:20 MCHC Differential 32.5 pg (28.0-36.0) 06/30/18 12:20 RDW 17.4 % (11.5-20.0) 06/30/18 12:20 Plt Count 297 Th/cmm (150-400) 06/30/18 12:20 MPV 8.0 fl 06/30/18 12:20 Neutrophils % 58.2 % (40.0-80.0) 06/30/18 12:20 Lymphocytes % 29.5 % (20.0-50.0) 06/30/18 12:20 Monocytes % 9.0 % (2.0-10.0) 06/30/18 12:20 Eosinophils % 2.2 % (0.0-5.0) 06/30/18 12:20 Basophils % 1.1 % (0.0-2.0) 06/30/18 12:20 PT 11.0 SECONDS (9.5-11.5) 06/30/18 12:20 INR 1.06 (0.5-1.4) 06/30/18 12:20 PTT (Actin FS) 29.4 SECONDS (26.0-38.0) 06/30/18 12:20 Sodium 131 mEq/L (136-145) L 06/30/18 12:20 Potassium 5.0 mEq/L (3.5-5.1) 06/30/18 12:20 Chloride 97 mEq/L (98-107) L 06/30/18 12:20 Carbon Dioxide 23.5 mEq/L (21.0-31.0) 06/30/18 12:20 Anion Gap 15.5 (7.0-16.0) 06/30/18 12:20 BUN 38 mg/dL (7-25) H 06/30/18 12:20 Creatinine 1.8 mg/dL (0.6-1.2) H 06/30/18 12:20 Est GFR ( Amer) 36.3 ml/min (>90) 06/30/18 12:20 Est GFR (Non-Af Amer) 30.0 ml/min 06/30/18 12:20 BUN/Creatinine Ratio 21.1 06/30/18 12:20 Glucose 348 mg/dL (70-105) H 06/30/18 12:20 POC Glucose 271 MG/DL (70 - 105) H 07/04/18 16:54 Calcium 9.7 mg/dL (8.6-10.3) 06/30/18 12:20 Total Bilirubin 0.5 mg/dL (0.3-1.0) 06/30/18 12:20 AST 8 U/L (13-39) L 06/30/18 12:20 ALT 11 U/L (7-52) 06/30/18 12:20 Alkaline Phosphatase 71 U/L (34-104) 06/30/18 12:20 Troponin I 0.01 ng/mL (0.01-0.05) 06/30/18 12:20 B-Natriuretic Peptide 34.5 pg/mL (5.0-100.0) 06/30/18 13:17 Total Protein 7.0 gm/dL (6.0-8.3) 06/30/18 12:20 Albumin 3.5 gm/dL (3.7-5.3) L 06/30/18 12:20 Globulin 3.5 gm/dL 06/30/18 12:20 Albumin/Globulin Ratio 1.0 (1.0-1.8) 06/30/18 12:20 Triglycerides 138 mg/dL (<150) 06/30/18 13:02 Cholesterol 224 mg/dL (<200) H 06/30/18 13:02 LDL Cholesterol Direct 143 mg/dL (75-193) 06/30/18 13:02 HDL Cholesterol 56 mg/dL (23-92) 06/30/18 13:02 - Physical Exam Vitals and I&O: Vital Signs Temp 97.4 F 07/04/18 14:00 Pulse 71 07/04/18 17:20 Resp 18 07/04/18 14:00 BP 145/72 07/04/18 17:20 Pulse Ox 98 07/04/18 14:00 Intake & Output 07/04/18 07/04/18 07/05/18 06:59 18:59 06:59 Intake Total 360 1200 Balance 360 1200 Intake: Oral 360 1200 Other: # Voids 2 # Bowel Movements 0 1 Active Medications: Current Medications Acetaminophen (Tylenol) 650 mg PO Q4HR PRN PRN Reason: Mild Pain / Temp above 100 Stop: 08/29/18 16:08 Last Admin: 07/03/18 16:22 Dose: 650 mg Al Hydrox/Mg Hydrox/Simethicone (Maalox) 30 ml PO Q4HR PRN PRN Reason: GI DISTRESS Stop: 08/29/18 16:08 Amlodipine Besylate (Norvasc) 10 mg PO DAILY [facility] Stop: 08/30/18 08:59 Last Admin: 07/04/18 08:33 Dose: 10 mg Atorvastatin Calcium (Lipitor) 40 mg PO HS [facility] Stop: 08/29/18 20:59 Last Admin: 07/03/18 21:35 Dose: 40 mg Benazepril HCl (Lotensin) 40 mg PO DAILY [facility] Stop: 08/30/18 08:59 Last Admin: 07/04/18 08:34 Dose: 40 mg Carvedilol (Coreg) 18.75 mg PO BID [facility] Stop: 08/29/18 16:59 Last Admin: 07/04/18 17:20 Dose: 18.75 mg Dextrose (D50w) 50 ml IVP PRN PRN PRN Reason: Blood Glucose less than 70 Stop: 08/30/18 17:06 Dextrose (Glutose 40%) 18.75 gm PO PRN PRN PRN Reason: Blood Glucose less than 70 Stop: 08/30/18 17:06 Glucagon (Glucagen) 1 mg IM PRN PRN PRN Reason: Blood Glucose less than 70 Stop: 08/30/18 17:06 Insulin Glargine (Lantus Insulin) 20 units SUBQ HS [facility] Stop: 08/29/18 20:59 Last Admin: 07/03/18 21:39 Dose: 20 units Insulin Human Lispro (Humalog Insulin Sliding Scale) 0 units SUBQ ACHS [facility]; Protocol Stop: 08/30/18 17:14 Last Admin: 07/04/18 17:11 Dose: 10 units Magnesium Hydroxide (Milk Of Magnesia) 30 ml PO HS PRN PRN Reason: Constipation Montelukast Sodium (Singulair) 10 mg PO DAILY [facility] Stop: 08/30/18 08:59 Last Admin: 07/04/18 08:37 Dose: 10 mg Multivitamins/Vitamin C (Theragran) 1 tab PO DAILY [facility] Stop: 08/30/18 08:59 Last Admin: 07/04/18 08:37 Dose: 1 tab Pantoprazole Sodium (Protonix) 40 mg PO QDAC [facility] Stop: 08/30/18 07:29 Last Admin: 07/04/18 06:50 Dose: 40 mg Risperidone (Risperdal) 1 mg PO BID [facility]; Protocol Stop: 08/31/18 08:59 Last Admin: 07/04/18 17:21 Dose: 1 mg Zolpidem Tartrate (Ambien) 5 mg PO HSMR1 PRN PRN Reason: Insomnia Stop: 08/29/18 16:08 Physical Exam: 67 y/o female patient is still withdrawn and psychotic. General: demented HEENT: NC/AT, PERRLA Neck: Supple Lungs: CTAB Cardiovascular: RRR, Normal S1, Normal S2, without murmur Abdomen: soft, non-tender, non-distended, positive bowel sound Extremities: excoriation Neurological: no change, disorganized - Procedures Procedures: Procedures Procedure Code Date INDIVID PSYCHOTHERAP NEC 94.39 05/26/08 OTHER GROUP THERAPY 94.44 10/31/14 RECREATIONAL THERAPY 93.81 05/26/08 Internal Medicine Assmt/Plan - Assessment Assessment: Dementia. COPD. DM. CHF. CAD. HTN. Arthritis. Dyslipidemia. - Plan Plan: Continuation of care Monitor vitals, diabetic low sodium diet and labs Accu-check twice daily Fall precaution Pain management Continue present care management Nutritional Asmnt/Malnutr-PDOC - Dietary Evaluation Malnutrition Findings (Please click <Entered> for more info): Nutritional Asmnt/Malnutrition Start: 07/02/18 10: 36 Text: Status: Complete Freq: Protocol: Document 07/02/18 10:36 [facility] (Rec: 07/02/18 10:50 [email or web address] [email or web address]) Nutritional Asmnt/Malnutrition Patient General Information Nutritional Screening High Risk Diagnosis psychosis Pertinent Medical Hx/Surgical Hx HTN, DM, CAD, CHF, asthma/COPD , DVT/PE, dyslipidemia, PUD/ GERD, arthritis, dementia, appendectomy Subjective Information Pt seen eating lunch in dining room. Per EMR, PO intake 50- 100%. Glucose 348 at admission noted. Not able to provide diabetic education d/t pt mental status. Current Diet Order/ Nutrition Support [facility] sofr, CCHO 60gm, Na 2gm, no lactoase Pertinent Medications lipitor, lantus, humalog, theragran, protonix Pertinent Labs 06/30 Na 131, Cl 97, BUN 38, Cr 1.8, Glucose 345 07/01-07/02 POC 89-324 Nutritional Hx/Data Height 1.73 m Height (Calculated Centimeters) 172.7 Current Weight (lbs) 68.039 kg Weight (Calculated Kilograms) 68.0 Weight (Calculated Grams) 29939.9 [place] Body Weight 140 Body Mass Index (BMI) 22.8 Weight Status Approriate GI Symptoms GI Symptoms None Last BM 55 Difficult in: None Food Allergies lactose Skin Integrity/Comment: intact Current %PO Good (75-100%) Estimated Nutritional Goals BEE in Kcals: Using Current wt Calories/Kcals/Kg 25-30 Kcals Calculated 8991-6238 Protein: Using Current wt Protein g/k-1.2 Protein Calculated 68-82 Fluid: ml 1700-2040ml (1ml/kcal) Nutritional Problem 1. Problem Problem altered nutrition related labs Etiology hyperglycemia, renal dysfunction Signs/Symptoms: BUN 38, Cr 1.8, Glucose 345, POC 89-324 Malnutrition Alert Is there a minimum of two criteria No selected? Query Text:Check all the applicable criteria. A minimum of two criteria are recommended for diagnosis of either severe or non-severe malnutrition. Malnutrition Related to Morbid Obesity Malnutrition related to morbid obesity No Intervention/Recommendation Comments 1. Continue with [facility] soft, CCHO 60gm, Na 2gm, no lactoase diet as ordered. MD to adjust insulin regimen for optimal glycemic control. 2. Monitor PO intake, wt, labs and skin integrity 3. F/U as high risk in 2-3 days Expected Outcomes/Goals Expected Outcomes/Goals 1. PO intake to meet at least 75% of nutritional needs. 2. Wt stability, skin to remain intact, labs to approach WNL.
[2018-07-04] MEDS: Insulin Glargine 100 units/ml 10ml Vial SUBQ SCH (20:57)
[2018-07-05] MEDS: INSULIN LISPRO SLIDING SCALE 100 UNITS/ML UNIT SUBQ SCH ×4 (06:40→21:00)
[2018-07-05] MEDS: Pantoprazole 40 mg EC Tab PO SCH (06:40)
[2018-07-05] MEDS: Multivitamin Tab PO SCH (08:59)
[2018-07-05] MEDS: Apixaban 5 MG TABLET PO SCH ×2 (09:03→16:54)
--- NOTE | 2018-07-05 09:10 | Progress Notes ---
DATE: SUBJECTIVE: Chart was reviewed and the patient interviewed. Also discussed the patient's condition with the staff and reviewed records and labs. The patient is still guarded and she is still having episodes of yelling and screaming, but less than before. The patient also is still suspicious and is still paranoid. She also is still interacting minimally with others. Otherwise, the patient is more visible. She is compliant with taking her medications with no side effects of medications. ASSESSMENT: The patient is still psychotic, but showing improvement. TREATMENT PLAN: Continue to monitor behavior and condition closely. Also, continue adjusting psychotropic medications and work on her ineffective coping. [facility]# [id number]
--- NOTE | 2018-07-05 20:54 | Progress Notes ---
DATE: SUBJECTIVE: Chart reviewed and the patient interviewed. Also discussed the patient's condition with the staff and reviewed records and labs. The patient is still actively hallucinating and the patient also seems to be confused. The patient is talking about roommate that is "coming and taking things from me." She also is still suspicious, anxious, and paranoid. Otherwise, the patient is compliant with taking her medications with no side effects of medications. She is still suspicious and paranoid and guarded and needs close monitoring. ASSESSMENT: The patient is still agitated and is still psychotic. TREATMENT PLAN: Continue to monitor her behavior and her condition closely. Also, continue adjusting psychotropic medications and followup. [facility]# [id number]
[2018-07-05] MEDS: Insulin Glargine 100 units/ml 10ml Vial SUBQ SCH (20:59)
[2018-07-06] MEDS: Pantoprazole 40 mg EC Tab PO SCH (06:33)
[2018-07-06] MEDS: INSULIN LISPRO SLIDING SCALE 100 UNITS/ML UNIT SUBQ SCH ×4 (06:34→20:40)
[2018-07-06] MEDS: Multivitamin Tab PO SCH (08:53)
[2018-07-06] MEDS: Apixaban 5 MG TABLET PO SCH ×2 (08:53→16:12)
--- NOTE | 2018-07-06 14:20 | Internal Medicine Prog Note ---
Internal Medicine Subjective - Subjective Service Date: 07/06/18 Patient seen and examined:: with staff Patient is:: awake, verbal Patient Complaints of:: other (Hx of Dementia.) Per staff patient has:: no adverse event, no episodes of fall Internal Medicine Objective - Results Result Diagrams: 06/30/18 12:20 06/30/18 12:20 Recent Labs: Laboratory Last Values WBC 6.0 Th/cmm (4.8-10.8) 06/30/18 12:20 RBC 4.20 Mil/cmm (3.80-5.20) 06/30/18 12:20 Hgb 11.8 gm/dL (12-16) L 06/30/18 12:20 Hct 36.2 % (41.0-60) L 06/30/18 12:20 MCV 86.1 fl (81-100) 06/30/18 12:20 MCH 28.0 pg (27.0-31.0) 06/30/18 12:20 MCHC Differential 32.5 pg (28.0-36.0) 06/30/18 12:20 RDW 17.4 % (11.5-20.0) 06/30/18 12:20 Plt Count 297 Th/cmm (150-400) 06/30/18 12:20 MPV 8.0 fl 06/30/18 12:20 Neutrophils % 58.2 % (40.0-80.0) 06/30/18 12:20 Lymphocytes % 29.5 % (20.0-50.0) 06/30/18 12:20 Monocytes % 9.0 % (2.0-10.0) 06/30/18 12:20 Eosinophils % 2.2 % (0.0-5.0) 06/30/18 12:20 Basophils % 1.1 % (0.0-2.0) 06/30/18 12:20 PT 11.0 SECONDS (9.5-11.5) 06/30/18 12:20 INR 1.06 (0.5-1.4) 06/30/18 12:20 PTT (Actin FS) 29.4 SECONDS (26.0-38.0) 06/30/18 12:20 Sodium 131 mEq/L (136-145) L 06/30/18 12:20 Potassium 5.0 mEq/L (3.5-5.1) 06/30/18 12:20 Chloride 97 mEq/L (98-107) L 06/30/18 12:20 Carbon Dioxide 23.5 mEq/L (21.0-31.0) 06/30/18 12:20 Anion Gap 15.5 (7.0-16.0) 06/30/18 12:20 BUN 38 mg/dL (7-25) H 06/30/18 12:20 Creatinine 1.8 mg/dL (0.6-1.2) H 06/30/18 12:20 Est GFR ( Amer) 36.3 ml/min (>90) 06/30/18 12:20 Est GFR (Non-Af Amer) 30.0 ml/min 06/30/18 12:20 BUN/Creatinine Ratio 21.1 06/30/18 12:20 Glucose 348 mg/dL (70-105) H 06/30/18 12:20 POC Glucose 148 MG/DL (70 - 105) H 07/06/18 11:46 Calcium 9.7 mg/dL (8.6-10.3) 06/30/18 12:20 Total Bilirubin 0.5 mg/dL (0.3-1.0) 06/30/18 12:20 AST 8 U/L (13-39) L 06/30/18 12:20 ALT 11 U/L (7-52) 06/30/18 12:20 Alkaline Phosphatase 71 U/L (34-104) 06/30/18 12:20 Troponin I 0.01 ng/mL (0.01-0.05) 06/30/18 12:20 B-Natriuretic Peptide 34.5 pg/mL (5.0-100.0) 06/30/18 13:17 Total Protein 7.0 gm/dL (6.0-8.3) 06/30/18 12:20 Albumin 3.5 gm/dL (3.7-5.3) L 06/30/18 12:20 Globulin 3.5 gm/dL 06/30/18 12:20 Albumin/Globulin Ratio 1.0 (1.0-1.8) 06/30/18 12:20 Triglycerides 138 mg/dL (<150) 06/30/18 13:02 Cholesterol 224 mg/dL (<200) H 06/30/18 13:02 LDL Cholesterol Direct 143 mg/dL (75-193) 06/30/18 13:02 HDL Cholesterol 56 mg/dL (23-92) 06/30/18 13:02 - Physical Exam Vitals and I&O: Vital Signs Temp 97.6 F 07/06/18 06:42 Pulse 78 07/06/18 08:53 Resp 18 07/06/18 07:52 BP 126/61 07/06/18 08:53 Pulse Ox 98 07/06/18 06:42 Intake & Output 07/05/18 07/06/18 07/06/18 18:59 06:59 18:59 Intake Total 1000 120 Balance 1000 120 Intake: Oral 1000 120 Other: # Voids 4 2 # Bowel Movements 1 0 Active Medications: Current Medications Acetaminophen (Tylenol) 650 mg PO Q4HR PRN PRN Reason: Mild Pain / Temp above 100 Stop: 08/29/18 16:08 Last Admin: 07/03/18 16:22 Dose: 650 mg Al Hydrox/Mg Hydrox/Simethicone (Maalox) 30 ml PO Q4HR PRN PRN Reason: GI DISTRESS Stop: 08/29/18 16:08 Amlodipine Besylate (Norvasc) 10 mg PO DAILY [facility] Stop: 08/30/18 08:59 Last Admin: 07/06/18 08:52 Dose: 10 mg Atorvastatin Calcium (Lipitor) 40 mg PO HS [facility] Stop: 08/29/18 20:59 Last Admin: 07/05/18 20:53 Dose: 40 mg Benazepril HCl (Lotensin) 40 mg PO DAILY [facility] Stop: 08/30/18 08:59 Last Admin: 07/06/18 08:51 Dose: 40 mg Carvedilol (Coreg) 18.75 mg PO BID [facility] Stop: 08/29/18 16:59 Last Admin: 07/06/18 08:53 Dose: 18.75 mg Dextrose (D50w) 50 ml IVP PRN PRN PRN Reason: Blood Glucose less than 70 Stop: 08/30/18 17:06 Dextrose (Glutose 40%) 18.75 gm PO PRN PRN PRN Reason: Blood Glucose less than 70 Stop: 08/30/18 17:06 Glucagon (Glucagen) 1 mg IM PRN PRN PRN Reason: Blood Glucose less than 70 Stop: 08/30/18 17:06 Insulin Glargine (Lantus Insulin) 20 units SUBQ HS [facility] Stop: 08/29/18 20:59 Last Admin: 07/05/18 20:59 Dose: 20 units Insulin Human Lispro (Humalog Insulin Sliding Scale) 0 units SUBQ ACHS [facility]; Protocol Stop: 08/30/18 17:14 Last Admin: 07/06/18 11:58 Dose: 4 units Magnesium Hydroxide (Milk Of Magnesia) 30 ml PO HS PRN PRN Reason: Constipation Montelukast Sodium (Singulair) 10 mg PO DAILY [facility] Stop: 08/30/18 08:59 Last Admin: 07/06/18 08:53 Dose: 10 mg Multivitamins/Vitamin C (Theragran) 1 tab PO DAILY [facility] Stop: 08/30/18 08:59 Last Admin: 07/06/18 08:53 Dose: 1 tab Pantoprazole Sodium (Protonix) 40 mg PO QDAC [facility] Stop: 08/30/18 07:29 Last Admin: 07/06/18 06:33 Dose: 40 mg Risperidone (Risperdal) 1.5 mg PO BID [facility]; Protocol Stop: 09/04/18 08:59 Last Admin: 07/06/18 08:53 Dose: 1.5 mg Zolpidem Tartrate (Ambien) 5 mg PO HSMR1 PRN PRN Reason: Insomnia Stop: 08/29/18 16:08 Physical Exam: 67 y/o female patient remains psychotic. General: demented HEENT: NC/AT, PERRLA Neck: Supple Lungs: CTAB Cardiovascular: RRR, Normal S1, Normal S2, without murmur Abdomen: soft, non-tender, non-distended, positive bowel sound Extremities: excoriation Neurological: no change, disorganized - Procedures Procedures: Procedures Procedure Code Date INDIVID PSYCHOTHERAP NEC 94.39 05/26/08 OTHER GROUP THERAPY 94.44 10/31/14 RECREATIONAL THERAPY 93.81 05/26/08 Internal Medicine Assmt/Plan - Assessment Assessment: Psyhotic. Dementia. COPD. DM. CHF. CAD. HTN. Arthritis. Dyslipidemia. - Plan Plan: Continuation of care Monitor vitals, diabetic low sodium diet and labs Accu-check twice daily Fall precaution Pain management Continue present care management Nutritional Asmnt/Malnutr-PDOC - Dietary Evaluation Malnutrition Findings (Please click <Entered> for more info): Nutritional Asmnt/Malnutrition Start: 07/02/18 10: 36 Text: Status: Complete Freq: Protocol: Document 07/02/18 10:36 MOMOG (Rec: 07/02/18 10:50 [email or web address]) Nutritional Asmnt/Malnutrition Patient General Information Nutritional Screening High Risk Diagnosis psychosis Pertinent Medical Hx/Surgical Hx HTN, DM, CAD, CHF, asthma/COPD , DVT/PE, dyslipidemia, PUD/ GERD, arthritis, dementia, appendectomy Subjective Information Pt seen eating lunch in dining room. Per EMR, PO intake 50- 100%. Glucose 348 at admission noted. Not able to provide diabetic education d/t pt mental status. Current Diet Order/ Nutrition Support [facility] sofr, CCHO 60gm, Na 2gm, no lactoase Pertinent Medications lipitor, lantus, humalog, theragran, protonix Pertinent Labs 06/30 Na 131, Cl 97, BUN 38, Cr 1.8, Glucose 345 07/01-07/02 POC 89-324 Nutritional Hx/Data Height 1.73 m Height (Calculated Centimeters) 172.7 Current Weight (lbs) 68.039 kg Weight (Calculated Kilograms) 68.0 Weight (Calculated Grams) 40791.9 [place] Body Weight 140 Body Mass Index (BMI) 22.8 Weight Status Approriate GI Symptoms GI Symptoms None Last BM 55 Difficult in: None Food Allergies lactose Skin Integrity/Comment: intact Current %PO Good (75-100%) Estimated Nutritional Goals BEE in Kcals: Using Current wt Calories/Kcals/Kg 25-30 Kcals Calculated 2562-5623 Protein: Using Current wt Protein g/k-1.2 Protein Calculated 68-82 Fluid: ml 1700-2040ml (1ml/kcal) Nutritional Problem 1. Problem Problem altered nutrition related labs Etiology hyperglycemia, renal dysfunction Signs/Symptoms: BUN 38, Cr 1.8, Glucose 345, POC 89-324 Malnutrition Alert Is there a minimum of two criteria No selected? Query Text:Check all the applicable criteria. A minimum of two criteria are recommended for diagnosis of either severe or non-severe malnutrition. Malnutrition Related to Morbid Obesity Malnutrition related to morbid obesity No Intervention/Recommendation Comments 1. Continue with [facility] soft, CCHO 60gm, Na 2gm, no lactoase diet as ordered. MD to adjust insulin regimen for optimal glycemic control. 2. Monitor PO intake, wt, labs and skin integrity 3. F/U as high risk in 2-3 days Expected Outcomes/Goals Expected Outcomes/Goals 1. PO intake to meet at least 75% of nutritional needs. 2. Wt stability, skin to remain intact, labs to approach WNL.
[2018-07-06] MEDS: Insulin Glargine 100 units/ml 10ml Vial SUBQ SCH (20:40)
--- NOTE | 2018-07-06 22:10 | Progress Notes ---
DATE: SUBJECTIVE: Chart reviewed and the patient interviewed. Also discussed the patient's condition with the staff and reviewed records and labs. The patient is still paranoid and agitated. The patient also is still accusing her roommates with different things and she still has difficulty verbalizing any safe plan for self-care. The patient also is still suspicious and is still paranoid and easily agitated and needs lots of redirections. Otherwise, the patient is compliant with taking her medications with no side effects of medications. ASSESSMENT: The patient is still agitated and is still paranoid. TREATMENT PLAN: We will continue to monitor her behavior and her condition closely. Also, we will increase Risperdal to 1.5 mg twice a day and continue to work on behavioral modification and her agitation. [facility]# [id number]
[2018-07-07] MEDS: INSULIN LISPRO SLIDING SCALE 100 UNITS/ML UNIT SUBQ SCH ×4 (06:32→20:56)
[2018-07-07] MEDS: Pantoprazole 40 mg EC Tab PO SCH (06:32)
[2018-07-07] MEDS: Apixaban 5 MG TABLET PO SCH ×2 (08:26→17:16)
[2018-07-07] MEDS: Multivitamin Tab PO SCH (08:37)
[2018-07-07] MEDS: Insulin Glargine 100 units/ml 10ml Vial SUBQ SCH (20:55)
--- NOTE | 2018-07-08 01:32 | Progress Notes ---
DATE: 07/07/2018 SUBJECTIVE: Chart was reviewed and the patient interviewed and discussed the patient's condition with the staff and reviewed records and labs. The patient continued to have labile affect and is still demanding and in irritable and angry mood. The patient also is selective and of who the staff is going to give her medications. The patient also is still irritable and agitated and needs lots of redirections. Otherwise, the patient continued to comply with taking her medications with no side effects of medications. ASSESSMENT: The patient is still psychotic. TREATMENT PLAN: Risperdal was increased yesterday to 1.5 mg twice a day. Continue to monitor her behavior and continue current dose and continue to follow up. [facility]# [id number]
[2018-07-08] MEDS: INSULIN LISPRO SLIDING SCALE 100 UNITS/ML UNIT SUBQ SCH ×4 (06:38→20:39)
[2018-07-08] MEDS: Pantoprazole 40 mg EC Tab PO SCH (06:39)
[2018-07-08] MEDS: Apixaban 5 MG TABLET PO SCH ×2 (09:33→16:44)
[2018-07-08] MEDS: Multivitamin Tab PO SCH (09:33)
--- NOTE | 2018-07-08 10:04 | Internal Medicine Prog Note ---
Internal Medicine Subjective - Subjective Patient seen and examined:: chart reviewed Patient is:: awake, verbal, other (still psychotic) Patient Complaints of:: other (Hx of Dementia.) Per staff patient has:: no adverse event, no episodes of fall Internal Medicine Objective - Results Result Diagrams: 06/30/18 12:20 06/30/18 12:20 Recent Labs: Laboratory Last Values WBC 6.0 Th/cmm (4.8-10.8) 06/30/18 12:20 RBC 4.20 Mil/cmm (3.80-5.20) 06/30/18 12:20 Hgb 11.8 gm/dL (12-16) L 06/30/18 12:20 Hct 36.2 % (41.0-60) L 06/30/18 12:20 MCV 86.1 fl (81-100) 06/30/18 12:20 MCH 28.0 pg (27.0-31.0) 06/30/18 12:20 MCHC Differential 32.5 pg (28.0-36.0) 06/30/18 12:20 RDW 17.4 % (11.5-20.0) 06/30/18 12:20 Plt Count 297 Th/cmm (150-400) 06/30/18 12:20 MPV 8.0 fl 06/30/18 12:20 Neutrophils % 58.2 % (40.0-80.0) 06/30/18 12:20 Lymphocytes % 29.5 % (20.0-50.0) 06/30/18 12:20 Monocytes % 9.0 % (2.0-10.0) 06/30/18 12:20 Eosinophils % 2.2 % (0.0-5.0) 06/30/18 12:20 Basophils % 1.1 % (0.0-2.0) 06/30/18 12:20 PT 11.0 SECONDS (9.5-11.5) 06/30/18 12:20 INR 1.06 (0.5-1.4) 06/30/18 12:20 PTT (Actin FS) 29.4 SECONDS (26.0-38.0) 06/30/18 12:20 Sodium 131 mEq/L (136-145) L 06/30/18 12:20 Potassium 5.0 mEq/L (3.5-5.1) 06/30/18 12:20 Chloride 97 mEq/L (98-107) L 06/30/18 12:20 Carbon Dioxide 23.5 mEq/L (21.0-31.0) 06/30/18 12:20 Anion Gap 15.5 (7.0-16.0) 06/30/18 12:20 BUN 38 mg/dL (7-25) H 06/30/18 12:20 Creatinine 1.8 mg/dL (0.6-1.2) H 06/30/18 12:20 Est GFR ( Amer) 36.3 ml/min (>90) 06/30/18 12:20 Est GFR (Non-Af Amer) 30.0 ml/min 06/30/18 12:20 BUN/Creatinine Ratio 21.1 06/30/18 12:20 Glucose 348 mg/dL (70-105) H 06/30/18 12:20 POC Glucose 77 MG/DL (70 - 105) 07/08/18 06:00 Calcium 9.7 mg/dL (8.6-10.3) 06/30/18 12:20 Total Bilirubin 0.5 mg/dL (0.3-1.0) 06/30/18 12:20 AST 8 U/L (13-39) L 06/30/18 12:20 ALT 11 U/L (7-52) 06/30/18 12:20 Alkaline Phosphatase 71 U/L (34-104) 06/30/18 12:20 Troponin I 0.01 ng/mL (0.01-0.05) 06/30/18 12:20 B-Natriuretic Peptide 34.5 pg/mL (5.0-100.0) 06/30/18 13:17 Total Protein 7.0 gm/dL (6.0-8.3) 06/30/18 12:20 Albumin 3.5 gm/dL (3.7-5.3) L 06/30/18 12:20 Globulin 3.5 gm/dL 06/30/18 12:20 Albumin/Globulin Ratio 1.0 (1.0-1.8) 06/30/18 12:20 Triglycerides 138 mg/dL (<150) 06/30/18 13:02 Cholesterol 224 mg/dL (<200) H 06/30/18 13:02 LDL Cholesterol Direct 143 mg/dL (75-193) 06/30/18 13:02 HDL Cholesterol 56 mg/dL (23-92) 06/30/18 13:02 - Physical Exam Vitals and I&O: Vital Signs Temp 98.3 F 07/08/18 06:07 Pulse 79 07/08/18 09:33 Resp 20 07/08/18 06:07 BP 153/88 07/08/18 09:33 Pulse Ox 96 07/08/18 06:07 Intake & Output 07/07/18 07/08/18 07/08/18 18:59 06:59 18:59 Intake Total 1000 480 Output Total 2 Balance 1000 478 Intake: Oral 1000 480 Output: Urine/Stool Mix 2 Other: # Voids 4 2 # Bowel Movements 1 Stool Characteristics Soft Active Medications: Current Medications Acetaminophen (Tylenol) 650 mg PO Q4HR PRN PRN Reason: Mild Pain / Temp above 100 Stop: 08/29/18 16:08 Last Admin: 07/07/18 22:34 Dose: 650 mg Al Hydrox/Mg Hydrox/Simethicone (Maalox) 30 ml PO Q4HR PRN PRN Reason: GI DISTRESS Stop: 08/29/18 16:08 Amlodipine Besylate (Norvasc) 10 mg PO DAILY [facility] Stop: 08/30/18 08:59 Last Admin: 07/08/18 09:32 Dose: 10 mg Atorvastatin Calcium (Lipitor) 40 mg PO HS [facility] Stop: 08/29/18 20:59 Last Admin: 07/07/18 20:54 Dose: 40 mg Benazepril HCl (Lotensin) 40 mg PO DAILY [facility] Stop: 08/30/18 08:59 Last Admin: 07/08/18 09:32 Dose: 40 mg Carvedilol (Coreg) 18.75 mg PO BID [facility] Stop: 08/29/18 16:59 Last Admin: 07/08/18 09:33 Dose: 18.75 mg Dextrose (D50w) 50 ml IVP PRN PRN PRN Reason: Blood Glucose less than 70 Stop: 08/30/18 17:06 Dextrose (Glutose 40%) 18.75 gm PO PRN PRN PRN Reason: Blood Glucose less than 70 Stop: 08/30/18 17:06 Glucagon (Glucagen) 1 mg IM PRN PRN PRN Reason: Blood Glucose less than 70 Stop: 08/30/18 17:06 Insulin Glargine (Lantus Insulin) 20 units SUBQ HS [facility] Stop: 08/29/18 20:59 Last Admin: 07/07/18 20:55 Dose: 20 units Insulin Human Lispro (Humalog Insulin Sliding Scale) 0 units SUBQ ACHS [facility]; Protocol Stop: 08/30/18 17:14 Last Admin: 07/08/18 06:38 Dose: Not Given Magnesium Hydroxide (Milk Of Magnesia) 30 ml PO HS PRN PRN Reason: Constipation Montelukast Sodium (Singulair) 10 mg PO DAILY [facility] Stop: 08/30/18 08:59 Last Admin: 07/08/18 09:33 Dose: 10 mg Multivitamins/Vitamin C (Theragran) 1 tab PO DAILY [facility] Stop: 08/30/18 08:59 Last Admin: 07/08/18 09:33 Dose: 1 tab Pantoprazole Sodium (Protonix) 40 mg PO QDAC [facility] Stop: 08/30/18 07:29 Last Admin: 07/08/18 06:39 Dose: 40 mg Risperidone (Risperdal) 2 mg PO BID [facility]; Protocol Stop: 09/06/18 08:59 Last Admin: 07/08/18 09:32 Dose: 2 mg Zolpidem Tartrate (Ambien) 5 mg PO HSMR1 PRN PRN Reason: Insomnia Stop: 08/29/18 16:08 Physical Exam: 67 y/o female patient remains psychotic. General: demented HEENT: NC/AT, PERRLA Neck: Supple Lungs: CTAB Cardiovascular: RRR, Normal S1, Normal S2, without murmur Abdomen: soft, non-tender, non-distended, positive bowel sound Extremities: excoriation Neurological: no change, disorganized - Procedures Procedures: Procedures Procedure Code Date INDIVID PSYCHOTHERAP NEC 94.39 05/26/08 OTHER GROUP THERAPY 94.44 10/31/14 RECREATIONAL THERAPY 93.81 05/26/08 Internal Medicine Assmt/Plan - Assessment Assessment: Psyhotic. Dementia. COPD. DM. CHF. CAD. HTN. Arthritis. Dyslipidemia. - Plan Plan: Continuation of care Monitor vitals, diabetic low sodium diet and labs Accu-check twice daily Fall precaution Pain management Continue present care management Nutritional Asmnt/Malnutr-PDOC - Dietary Evaluation Malnutrition Findings (Please click <Entered> for more info): Nutritional Asmnt/Malnutrition Start: 07/02/18 10: 36 Text: Status: Complete Freq: Protocol: Document 07/02/18 10:36 LCMISAELG (Rec: 07/02/18 10:50 [email or web address]) Nutritional Asmnt/Malnutrition Patient General Information Nutritional Screening High Risk Diagnosis psychosis Pertinent Medical Hx/Surgical Hx HTN, DM, CAD, CHF, asthma/COPD , DVT/PE, dyslipidemia, PUD/ GERD, arthritis, dementia, appendectomy Subjective Information Pt seen eating lunch in dining room. Per EMR, PO intake 50- 100%. Glucose 348 at admission noted. Not able to provide diabetic education d/t pt mental status. Current Diet Order/ Nutrition Support [facility] sofr, CCHO 60gm, Na 2gm, no lactoase Pertinent Medications lipitor, lantus, humalog, theragran, protonix Pertinent Labs 06/30 Na 131, Cl 97, BUN 38, Cr 1.8, Glucose 345 07/01-07/02 POC 89-324 Nutritional Hx/Data Height 1.73 m Height (Calculated Centimeters) 172.7 Current Weight (lbs) 68.039 kg Weight (Calculated Kilograms) 68.0 Weight (Calculated Grams) 48147.9 [place] Body Weight 140 Body Mass Index (BMI) 22.8 Weight Status Approriate GI Symptoms GI Symptoms None Last BM 5/5 Difficult in: None Food Allergies lactose Skin Integrity/Comment: intact Current %PO Good (75-100%) Estimated Nutritional Goals BEE in Kcals: Using Current wt Calories/Kcals/Kg 25-30 Kcals Calculated 7619-7301 Protein: Using Current wt Protein g/k-1.2 Protein Calculated 68-82 Fluid: ml 1700-2040ml (1ml/kcal) Nutritional Problem 1. Problem Problem altered nutrition related labs Etiology hyperglycemia, renal dysfunction Signs/Symptoms: BUN 38, Cr 1.8, Glucose 345, POC 89-324 Malnutrition Alert Is there a minimum of two criteria No selected? Query Text:Check all the applicable criteria. A minimum of two criteria are recommended for diagnosis of either severe or non-severe malnutrition. Malnutrition Related to Morbid Obesity Malnutrition related to morbid obesity No Intervention/Recommendation Comments 1. Continue with [facility] soft, CCHO 60gm, Na 2gm, no lactoase diet as ordered. MD to adjust insulin regimen for optimal glycemic control. 2. Monitor PO intake, wt, labs and skin integrity 3. F/U as high risk in 2-3 days Expected Outcomes/Goals Expected Outcomes/Goals 1. PO intake to meet at least 75% of nutritional needs. 2. Wt stability, skin to remain intact, labs to approach WNL.
[2018-07-08] MEDS: Insulin Glargine 100 units/ml 10ml Vial SUBQ SCH (20:55)
--- NOTE | 2018-07-08 22:37 | Progress Notes ---
DATE: 07/08/2018 SUBJECTIVE: Chart reviewed and the patient interviewed. Also discussed the patient's condition with the staff and reviewed records and labs. The patient continued to be severely paranoid. The patient also is still in angry and in irritable mood. She also is suspicious about her roommate. The patient also is still easily agitated and needs lots of redirections. Otherwise, the patient continued to comply with taking Risperdal with no side effects. ASSESSMENT: The patient is still psychotic. TREATMENT PLAN: We will increase Risperdal to 2 mg twice a day and will continue to monitor her behavior and her condition closely. [facility]# [id number]
[2018-07-09] MEDS: Pantoprazole 40 mg EC Tab PO SCH (06:30)
[2018-07-09] MEDS: INSULIN LISPRO SLIDING SCALE 100 UNITS/ML UNIT SUBQ SCH ×3 (06:30→20:57)
[2018-07-09] MEDS: Multivitamin Tab PO SCH (09:05)
[2018-07-09] MEDS: Apixaban 5 MG TABLET PO SCH ×2 (09:05→16:09)
--- NOTE | 2018-07-09 12:09 | Internal Medicine Prog Note ---
Internal Medicine Subjective - Subjective Service Date: 07/09/18 Patient seen and examined:: with staff, chart reviewed Patient is:: awake, verbal, other (remains psychotic.) Patient Complaints of:: other (Hx of Dementia.) Per staff patient has:: no adverse event, no episodes of fall Internal Medicine Objective - Results Result Diagrams: 06/30/18 12:20 06/30/18 12:20 Recent Labs: Laboratory Last Values WBC 6.0 Th/cmm (4.8-10.8) 06/30/18 12:20 RBC 4.20 Mil/cmm (3.80-5.20) 06/30/18 12:20 Hgb 11.8 gm/dL (12-16) L 06/30/18 12:20 Hct 36.2 % (41.0-60) L 06/30/18 12:20 MCV 86.1 fl (81-100) 06/30/18 12:20 MCH 28.0 pg (27.0-31.0) 06/30/18 12:20 MCHC Differential 32.5 pg (28.0-36.0) 06/30/18 12:20 RDW 17.4 % (11.5-20.0) 06/30/18 12:20 Plt Count 297 Th/cmm (150-400) 06/30/18 12:20 MPV 8.0 fl 06/30/18 12:20 Neutrophils % 58.2 % (40.0-80.0) 06/30/18 12:20 Lymphocytes % 29.5 % (20.0-50.0) 06/30/18 12:20 Monocytes % 9.0 % (2.0-10.0) 06/30/18 12:20 Eosinophils % 2.2 % (0.0-5.0) 06/30/18 12:20 Basophils % 1.1 % (0.0-2.0) 06/30/18 12:20 PT 11.0 SECONDS (9.5-11.5) 06/30/18 12:20 INR 1.06 (0.5-1.4) 06/30/18 12:20 PTT (Actin FS) 29.4 SECONDS (26.0-38.0) 06/30/18 12:20 Sodium 131 mEq/L (136-145) L 06/30/18 12:20 Potassium 5.0 mEq/L (3.5-5.1) 06/30/18 12:20 Chloride 97 mEq/L (98-107) L 06/30/18 12:20 Carbon Dioxide 23.5 mEq/L (21.0-31.0) 06/30/18 12:20 Anion Gap 15.5 (7.0-16.0) 06/30/18 12:20 BUN 38 mg/dL (7-25) H 06/30/18 12:20 Creatinine 1.8 mg/dL (0.6-1.2) H 06/30/18 12:20 Est GFR ( Amer) 36.3 ml/min (>90) 06/30/18 12:20 Est GFR (Non-Af Amer) 30.0 ml/min 06/30/18 12:20 BUN/Creatinine Ratio 21.1 06/30/18 12:20 Glucose 348 mg/dL (70-105) H 06/30/18 12:20 POC Glucose 135 MG/DL (70 - 105) H 07/09/18 06:02 Calcium 9.7 mg/dL (8.6-10.3) 06/30/18 12:20 Total Bilirubin 0.5 mg/dL (0.3-1.0) 06/30/18 12:20 AST 8 U/L (13-39) L 06/30/18 12:20 ALT 11 U/L (7-52) 06/30/18 12:20 Alkaline Phosphatase 71 U/L (34-104) 06/30/18 12:20 Troponin I 0.01 ng/mL (0.01-0.05) 06/30/18 12:20 B-Natriuretic Peptide 34.5 pg/mL (5.0-100.0) 06/30/18 13:17 Total Protein 7.0 gm/dL (6.0-8.3) 06/30/18 12:20 Albumin 3.5 gm/dL (3.7-5.3) L 06/30/18 12:20 Globulin 3.5 gm/dL 06/30/18 12:20 Albumin/Globulin Ratio 1.0 (1.0-1.8) 06/30/18 12:20 Triglycerides 138 mg/dL (<150) 06/30/18 13:02 Cholesterol 224 mg/dL (<200) H 06/30/18 13:02 LDL Cholesterol Direct 143 mg/dL (75-193) 06/30/18 13:02 HDL Cholesterol 56 mg/dL (23-92) 06/30/18 13:02 - Physical Exam Vitals and I&O: Vital Signs Temp 98.3 F 07/09/18 06:14 Pulse 76 07/09/18 09:05 Resp 19 07/09/18 06:14 BP 145/58 07/09/18 09:05 Pulse Ox 94 07/09/18 06:14 Intake & Output 07/08/18 07/09/18 07/09/18 18:59 06:59 18:59 Intake Total 1660 360 Output Total 1 Balance 1660 359 Intake: Oral 1200 360 Other 460 Output: Urine/Stool Mix 1 Other: # Voids 4 1 # Bowel Movements 1 1 Stool Characteristics Soft Active Medications: Current Medications Acetaminophen (Tylenol) 650 mg PO Q4HR PRN PRN Reason: Mild Pain / Temp above 100 Stop: 08/29/18 16:08 Last Admin: 07/07/18 22:34 Dose: 650 mg Al Hydrox/Mg Hydrox/Simethicone (Maalox) 30 ml PO Q4HR PRN PRN Reason: GI DISTRESS Stop: 08/29/18 16:08 Amlodipine Besylate (Norvasc) 10 mg PO DAILY [facility] Stop: 08/30/18 08:59 Last Admin: 07/09/18 09:05 Dose: 10 mg Atorvastatin Calcium (Lipitor) 40 mg PO HS [facility] Stop: 08/29/18 20:59 Last Admin: 07/08/18 21:01 Dose: 40 mg Benazepril HCl (Lotensin) 40 mg PO DAILY [facility] Stop: 08/30/18 08:59 Last Admin: 07/09/18 09:04 Dose: 40 mg Carvedilol (Coreg) 18.75 mg PO BID [facility] Stop: 08/29/18 16:59 Last Admin: 07/09/18 09:05 Dose: 18.75 mg Dextrose (D50w) 50 ml IVP PRN PRN PRN Reason: Blood Glucose less than 70 Stop: 08/30/18 17:06 Dextrose (Glutose 40%) 18.75 gm PO PRN PRN PRN Reason: Blood Glucose less than 70 Stop: 08/30/18 17:06 Glucagon (Glucagen) 1 mg IM PRN PRN PRN Reason: Blood Glucose less than 70 Stop: 08/30/18 17:06 Insulin Glargine (Lantus Insulin) 20 units SUBQ HS [facility] Stop: 08/29/18 20:59 Last Admin: 07/08/18 20:55 Dose: 20 units Insulin Human Lispro (Humalog Insulin Sliding Scale) 0 units SUBQ ACHS [facility]; Protocol Stop: 08/30/18 17:14 Last Admin: 07/09/18 06:30 Dose: Not Given Magnesium Hydroxide (Milk Of Magnesia) 30 ml PO HS PRN PRN Reason: Constipation Montelukast Sodium (Singulair) 10 mg PO DAILY [facility] Stop: 08/30/18 08:59 Last Admin: 07/09/18 09:05 Dose: 10 mg Multivitamins/Vitamin C (Theragran) 1 tab PO DAILY [facility] Stop: 08/30/18 08:59 Last Admin: 07/09/18 09:05 Dose: 1 tab Pantoprazole Sodium (Protonix) 40 mg PO QDAC [facility] Stop: 08/30/18 07:29 Last Admin: 07/09/18 06:30 Dose: 40 mg Risperidone (Risperdal) 2 mg PO BID [facility]; Protocol Stop: 09/06/18 08:59 Last Admin: 07/09/18 09:05 Dose: 2 mg Zolpidem Tartrate (Ambien) 5 mg PO HSMR1 PRN PRN Reason: Insomnia Stop: 08/29/18 16:08 Physical Exam: 67 y/o female patient remains psychotic, continues to be very paranoid. General: demented HEENT: NC/AT, PERRLA Neck: Supple Lungs: CTAB Cardiovascular: RRR, Normal S1, Normal S2, without murmur Abdomen: soft, non-tender, non-distended, positive bowel sound Extremities: excoriation Neurological: no change, disorganized - Procedures Procedures: Procedures Procedure Code Date INDIVID PSYCHOTHERAP NEC 94.39 05/26/08 OTHER GROUP THERAPY 94.44 10/31/14 RECREATIONAL THERAPY 93.81 05/26/08 Internal Medicine Assmt/Plan - Assessment Assessment: Psyhotic. Dementia. COPD. DM. CHF. CAD. HTN. Arthritis. Dyslipidemia. - Plan Plan: Continuation of care As per psych/psych management Monitor vitals, diabetic low sodium diet and labs Accu-check twice daily Fall precaution Pain management Continue present care management Nutritional Asmnt/Malnutr-PDOC - Dietary Evaluation Malnutrition Findings (Please click <Entered> for more info): Nutritional Asmnt/Malnutrition Start: 07/02/18 10: 36 Text: Status: Complete Freq: Protocol: Document 07/02/18 10:36 [email or web address] (Rec: 07/02/18 10:50 [email or web address]) Nutritional Asmnt/Malnutrition Patient General Information Nutritional Screening High Risk Diagnosis psychosis Pertinent Medical Hx/Surgical Hx HTN, DM, CAD, CHF, asthma/COPD , DVT/PE, dyslipidemia, PUD/ GERD, arthritis, dementia, appendectomy Subjective Information Pt seen eating lunch in dining room. Per EMR, PO intake 50- 100%. Glucose 348 at admission noted. Not able to provide diabetic education d/t pt mental status. Current Diet Order/ Nutrition Support [facility] sofr, CCHO 60gm, Na 2gm, no lactoase Pertinent Medications lipitor, lantus, humalog, theragran, protonix Pertinent Labs 06/30 Na 131, Cl 97, BUN 38, Cr 1.8, Glucose 345 07/01-07/02 POC 89-324 Nutritional Hx/Data Height 1.73 m Height (Calculated Centimeters) 172.7 Current Weight (lbs) 68.039 kg Weight (Calculated Kilograms) 68.0 Weight (Calculated Grams) 15431.9 [place] Body Weight 140 Body Mass Index (BMI) 22.8 Weight Status Approriate GI Symptoms GI Symptoms None Last BM 5/5 Difficult in: None Food Allergies lactose Skin Integrity/Comment: intact Current %PO Good (75-100%) Estimated Nutritional Goals BEE in Kcals: Using Current wt Calories/Kcals/Kg 25-30 Kcals Calculated 2958-6128 Protein: Using Current wt Protein g/k-1.2 Protein Calculated 68-82 Fluid: ml 1700-2040ml (1ml/kcal) Nutritional Problem 1. Problem Problem altered nutrition related labs Etiology hyperglycemia, renal dysfunction Signs/Symptoms: BUN 38, Cr 1.8, Glucose 345, POC 89-324 Malnutrition Alert Is there a minimum of two criteria No selected? Query Text:Check all the applicable criteria. A minimum of two criteria are recommended for diagnosis of either severe or non-severe malnutrition. Malnutrition Related to Morbid Obesity Malnutrition related to morbid obesity No Intervention/Recommendation Comments 1. Continue with [facility] soft, CCHO 60gm, Na 2gm, no lactoase diet as ordered. MD to adjust insulin regimen for optimal glycemic control. 2. Monitor PO intake, wt, labs and skin integrity 3. F/U as high risk in 2-3 days Expected Outcomes/Goals Expected Outcomes/Goals 1. PO intake to meet at least 75% of nutritional needs. 2. Wt stability, skin to remain intact, labs to approach WNL.
[2018-07-09] MEDS: Insulin Glargine 100 units/ml 10ml Vial SUBQ SCH (20:57)
--- NOTE | 2018-07-09 21:16 | Progress Notes ---
DATE: 07/09/2018 SUBJECTIVE: Chart was reviewed and the patient interviewed. Also discussed the patient's condition with the staff and reviewed records and labs. The patient is still guarded and she is still easily agitated and easily irritable. The patient also is still paranoid, especially about her roommate. She also is still easily agitated and she is still rambling and thought processes are circumstantial with flight of ideas. The patient denies any hallucinations, but she is actively paranoid and actively responding. ASSESSMENT: The patient is still agitated. TREATMENT PLAN: Continue to monitor her behavior and her condition closely. Also, continue working on her agitation and her paranoia. Also, working on her anger and we will continue to follow up closely. [facility]# [id number]
[2018-07-10] MEDS: Pantoprazole 40 mg EC Tab PO SCH (06:39)
[2018-07-10] MEDS: INSULIN LISPRO SLIDING SCALE 100 UNITS/ML UNIT SUBQ SCH ×5 (06:42→20:22)
[2018-07-10] MEDS: Apixaban 5 MG TABLET PO SCH ×2 (08:27→17:10)
[2018-07-10] MEDS: Multivitamin Tab PO SCH (08:27)
[2018-07-10] MEDS: Insulin Glargine 100 units/ml 10ml Vial SUBQ SCH (20:21)
--- NOTE | 2018-07-10 22:41 | Progress Notes ---
DATE: 07/10/2018 SUBJECTIVE: The patient coming in from nursing home agitation, confusion and depressed. The patient apparently hospitalized before. The patient is quiet, withdrawn, refusing to speak with me this morning, sleeping but arousable, sometimes agitated, irritable and somewhat fixated and paranoid about her roommate. Fair sleep. Fair appetite. ASSESSMENT: The patient remains withdrawn, irritable, not want to talk to me. Poor orientation. We will continue to monitor. Medications were noted. Staff noting she is pretty forgetful, needing a lot of prompting, redirection. Currently on dosing of Risperdal. JOB# [id number]
--- NOTE | 2018-07-10 23:13 | Internal Medicine Prog Note ---
Internal Medicine Subjective - Subjective Patient is:: awake, verbal, other (remains psychotic.) Patient Complaints of:: other (Hx of Dementia.) Per staff patient has:: no adverse event, no episodes of fall Internal Medicine Objective - Results Result Diagrams: 06/30/18 12:20 06/30/18 12:20 Recent Labs: Laboratory Last Values WBC 6.0 Th/cmm (4.8-10.8) 06/30/18 12:20 RBC 4.20 Mil/cmm (3.80-5.20) 06/30/18 12:20 Hgb 11.8 gm/dL (12-16) L 06/30/18 12:20 Hct 36.2 % (41.0-60) L 06/30/18 12:20 MCV 86.1 fl (81-100) 06/30/18 12:20 MCH 28.0 pg (27.0-31.0) 06/30/18 12:20 MCHC Differential 32.5 pg (28.0-36.0) 06/30/18 12:20 RDW 17.4 % (11.5-20.0) 06/30/18 12:20 Plt Count 297 Th/cmm (150-400) 06/30/18 12:20 MPV 8.0 fl 06/30/18 12:20 Neutrophils % 58.2 % (40.0-80.0) 06/30/18 12:20 Lymphocytes % 29.5 % (20.0-50.0) 06/30/18 12:20 Monocytes % 9.0 % (2.0-10.0) 06/30/18 12:20 Eosinophils % 2.2 % (0.0-5.0) 06/30/18 12:20 Basophils % 1.1 % (0.0-2.0) 06/30/18 12:20 PT 11.0 SECONDS (9.5-11.5) 06/30/18 12:20 INR 1.06 (0.5-1.4) 06/30/18 12:20 PTT (Actin FS) 29.4 SECONDS (26.0-38.0) 06/30/18 12:20 Sodium 131 mEq/L (136-145) L 06/30/18 12:20 Potassium 5.0 mEq/L (3.5-5.1) 06/30/18 12:20 Chloride 97 mEq/L (98-107) L 06/30/18 12:20 Carbon Dioxide 23.5 mEq/L (21.0-31.0) 06/30/18 12:20 Anion Gap 15.5 (7.0-16.0) 06/30/18 12:20 BUN 38 mg/dL (7-25) H 06/30/18 12:20 Creatinine 1.8 mg/dL (0.6-1.2) H 06/30/18 12:20 Est GFR ( Amer) 36.3 ml/min (>90) 06/30/18 12:20 Est GFR (Non-Af Amer) 30.0 ml/min 06/30/18 12:20 BUN/Creatinine Ratio 21.1 06/30/18 12:20 Glucose 317 mg/dL (70-105) H 07/09/18 22:50 POC Glucose 310 MG/DL (70 - 105) H 07/10/18 19:58 Calcium 9.7 mg/dL (8.6-10.3) 06/30/18 12:20 Total Bilirubin 0.5 mg/dL (0.3-1.0) 06/30/18 12:20 AST 8 U/L (13-39) L 06/30/18 12:20 ALT 11 U/L (7-52) 06/30/18 12:20 Alkaline Phosphatase 71 U/L (34-104) 06/30/18 12:20 Troponin I 0.01 ng/mL (0.01-0.05) 06/30/18 12:20 B-Natriuretic Peptide 34.5 pg/mL (5.0-100.0) 06/30/18 13:17 Total Protein 7.0 gm/dL (6.0-8.3) 06/30/18 12:20 Albumin 3.5 gm/dL (3.7-5.3) L 06/30/18 12:20 Globulin 3.5 gm/dL 06/30/18 12:20 Albumin/Globulin Ratio 1.0 (1.0-1.8) 06/30/18 12:20 Triglycerides 138 mg/dL (<150) 06/30/18 13:02 Cholesterol 224 mg/dL (<200) H 06/30/18 13:02 LDL Cholesterol Direct 143 mg/dL (75-193) 06/30/18 13:02 HDL Cholesterol 56 mg/dL (23-92) 06/30/18 13:02 - Physical Exam Vitals and I&O: Vital Signs Temp 98.1 F 07/10/18 20:04 Pulse 87 07/10/18 20:04 Resp 20 07/10/18 20:04 BP 134/62 07/10/18 20:04 Pulse Ox 94 07/10/18 20:04 Intake & Output 07/10/18 07/10/18 07/11/18 06:59 18:59 06:59 Intake Total 400 180 Balance 400 180 Intake: Oral 400 180 Other: # Voids 1 3 2 # Bowel Movements 0 1 0 Stool Characteristics Soft Active Medications: Current Medications Acetaminophen (Tylenol) 650 mg PO Q4HR PRN PRN Reason: Mild Pain / Temp above 100 Stop: 08/29/18 16:08 Last Admin: 07/07/18 22:34 Dose: 650 mg Al Hydrox/Mg Hydrox/Simethicone (Maalox) 30 ml PO Q4HR PRN PRN Reason: GI DISTRESS Stop: 08/29/18 16:08 Amlodipine Besylate (Norvasc) 10 mg PO DAILY [facility] Stop: 08/30/18 08:59 Last Admin: 07/10/18 08:27 Dose: 10 mg Atorvastatin Calcium (Lipitor) 40 mg PO HS [facility] Stop: 08/29/18 20:59 Last Admin: 07/10/18 20:20 Dose: 40 mg Benazepril HCl (Lotensin) 40 mg PO DAILY [facility] Stop: 08/30/18 08:59 Last Admin: 07/10/18 08:27 Dose: 40 mg Carvedilol (Coreg) 18.75 mg PO BID [facility] Stop: 08/29/18 16:59 Last Admin: 07/10/18 17:10 Dose: Not Given Dextrose (D50w) 50 ml IVP PRN PRN PRN Reason: Blood Glucose less than 70 Stop: 08/30/18 17:06 Dextrose (Glutose 40%) 18.75 gm PO PRN PRN PRN Reason: Blood Glucose less than 70 Stop: 08/30/18 17:06 Glucagon (Glucagen) 1 mg IM PRN PRN PRN Reason: Blood Glucose less than 70 Stop: 08/30/18 17:06 Insulin Glargine (Lantus Insulin) 20 units SUBQ HS [facility] Stop: 08/29/18 20:59 Last Admin: 07/10/18 20:21 Dose: 20 units Insulin Human Lispro (Humalog Insulin Sliding Scale) 0 units SUBQ ACHS [facility]; Protocol Stop: 08/30/18 17:14 Last Admin: 07/10/18 20:22 Dose: 12 units Magnesium Hydroxide (Milk Of Magnesia) 30 ml PO HS PRN PRN Reason: Constipation Montelukast Sodium (Singulair) 10 mg PO DAILY [facility] Stop: 08/30/18 08:59 Last Admin: 07/10/18 08:27 Dose: 10 mg Multivitamins/Vitamin C (Theragran) 1 tab PO DAILY [facility] Stop: 08/30/18 08:59 Last Admin: 07/10/18 08:27 Dose: 1 tab Pantoprazole Sodium (Protonix) 40 mg PO QDAC [facility] Stop: 08/30/18 07:29 Last Admin: 07/10/18 06:39 Dose: 40 mg Risperidone (Risperdal) 2 mg PO BID [facility]; Protocol Stop: 09/06/18 08:59 Last Admin: 07/10/18 16:30 Dose: 2 mg Zolpidem Tartrate (Ambien) 5 mg PO HSMR1 PRN PRN Reason: Insomnia Stop: 08/29/18 16:08 Physical Exam: 67 y/o female patient remains psychotic, continues to be very paranoid. General: demented HEENT: NC/AT, PERRLA Neck: Supple Lungs: CTAB Cardiovascular: RRR, Normal S1, Normal S2, without murmur Abdomen: soft, non-tender, non-distended, positive bowel sound Extremities: excoriation Neurological: no change, disorganized - Procedures Procedures: Procedures Procedure Code Date INDIVID PSYCHOTHERAP NEC 94.39 05/26/08 OTHER GROUP THERAPY 94.44 10/31/14 RECREATIONAL THERAPY 93.81 05/26/08 Internal Medicine Assmt/Plan - Assessment Assessment: Psyhotic. Dementia. COPD. DM. CHF. CAD. HTN. Arthritis. Dyslipidemia. - Plan Plan: Continuation of care As per psych/psych management Monitor vitals, diabetic low sodium diet and labs Accu-check twice daily Fall precaution Pain management Continue present care management Nutritional Asmnt/Malnutr-PDOC - Dietary Evaluation Malnutrition Findings (Please click <Entered> for more info): Nutritional Asmnt/Malnutrition Start: 07/02/18 10: 36 Text: Status: Complete Freq: Protocol: Document 07/02/18 10:36 [email or web address] (Rec: 07/02/18 10:50 [email or web address] [email or web address]) Nutritional Asmnt/Malnutrition Patient General Information Nutritional Screening High Risk Diagnosis psychosis Pertinent Medical Hx/Surgical Hx HTN, DM, CAD, CHF, asthma/COPD , DVT/PE, dyslipidemia, PUD/ GERD, arthritis, dementia, appendectomy Subjective Information Pt seen eating lunch in dining room. Per EMR, PO intake 50- 100%. Glucose 348 at admission noted. Not able to provide diabetic education d/t pt mental status. Current Diet Order/ Nutrition Support [facility] sofr, [facility], Na 2gm, no lactoase Pertinent Medications lipitor, lantus, humalog, theragran, protonix Pertinent Labs 06/30 Na 131, Cl 97, BUN 38, Cr 1.8, Glucose 345 07/01-07/02 POC 89-324 Nutritional Hx/Data Height 1.73 m Height (Calculated Centimeters) 172.7 Current Weight (lbs) 68.039 kg Weight (Calculated Kilograms) 68.0 Weight (Calculated Grams) 36587.9 [place] Body Weight 140 Body Mass Index (BMI) 22.8 Weight Status Approriate GI Symptoms GI Symptoms None Last BM 55 Difficult in: None Food Allergies lactose Skin Integrity/Comment: intact Current %PO Good (75-100%) Estimated Nutritional Goals BEE in Kcals: Using Current wt Calories/Kcals/Kg 25-30 Kcals Calculated 8881-1816 Protein: Using Current wt Protein g/k-1.2 Protein Calculated 68-82 Fluid: ml 1700-2040ml (1ml/kcal) Nutritional Problem 1. Problem Problem altered nutrition related labs Etiology hyperglycemia, renal dysfunction Signs/Symptoms: BUN 38, Cr 1.8, Glucose 345, POC 89-324 Malnutrition Alert Is there a minimum of two criteria No selected? Query Text:Check all the applicable criteria. A minimum of two criteria are recommended for diagnosis of either severe or non-severe malnutrition. Malnutrition Related to Morbid Obesity Malnutrition related to morbid obesity No Intervention/Recommendation Comments 1. Continue with [facility] soft, CCHO 60gm, Na 2gm, no lactoase diet as ordered. MD to adjust insulin regimen for optimal glycemic control. 2. Monitor PO intake, wt, labs and skin integrity 3. F/U as high risk in 2-3 days Expected Outcomes/Goals Expected Outcomes/Goals 1. PO intake to meet at least 75% of nutritional needs. 2. Wt stability, skin to remain intact, labs to approach WNL.
[2018-07-11] MEDS: Pantoprazole 40 mg EC Tab PO SCH (06:39)
[2018-07-11] MEDS: INSULIN LISPRO SLIDING SCALE 100 UNITS/ML UNIT SUBQ SCH ×3 (06:39→17:30)
[2018-07-11] MEDS: Apixaban 5 MG TABLET PO SCH ×2 (09:27→16:42)
[2018-07-11] MEDS: Multivitamin Tab PO SCH (09:29)
== END 2018-07-11 18:40 | DRG 885 ==
LOC: ER 12:25 → GERO 14:15
PROVIDERS: ADMIT Psychiatry & Neurology Psychiatry; ATTEND Psychiatry & Neurology Psychiatry
DX: F25.9 Schizoaffective disorder, unspecified (principal); I11.0 Hypertensive heart disease with heart failure; I10 Essential (primary) hypertension; E11.9 Type 2 diabetes mellitus without complications; I25.10 Atherosclerotic heart disease of native coronary artery without angina pectoris; I50.9 Heart failure, unspecified; J45.909 Unspecified asthma, uncomplicated; J44.9 Chronic obstructive pulmonary disease, unspecified; E78.5 Hyperlipidemia, unspecified; K21.9 Gastro-esophageal reflux disease without esophagitis; M19.90 Unspecified osteoarthritis, unspecified site; F03.90 Unspecified dementia, unspecified severity, without behavioral disturbance, psychotic disturbance, mood disturbance, and anxiety; F29 Unspecified psychosis not due to a substance or known physiological condition; Z86.718 Personal history of other venous thrombosis and embolism; Z87.11 Personal history of peptic ulcer disease; Z88.5 Allergy status to narcotic agent; Z88.1 Allergy status to other antibiotic agents
CPT/HCPCS: 36415-UA; 71045-TC; 80053-TC; 80061-TC; 82947-TC; 82948-90; 83036-90; 83880-TC; 84484-TC; 85025-TC; 85610-TC; 85730-TC; 86592-TC; 93005; G0410; J1815; Z7610